=== PATIENT | female | born 1980 | race Caucasian/White ===

== ENCOUNTER → 2018-09-13 11:16 | Outpatient (CLI) | payer MEDICAID, SELFPAY ==
--- NOTE | 2018-09-13 11:22 | RAD_ITS ---
STUDY: X-RAY - LUMBAR SPINE REASON FOR EXAM: Female, 38 years old. Low back pain TECHNIQUE: 6 view(s) of the lumbar spine were obtained. COMPARISON: None FINDINGS: There is normal alignment and curvature of the lumbosacral spine with no acute fractures or dislocations. There are degenerative changes at L4-5 and L5-S1. The facet joints are normal.. RAD/L/S Spine Min 4 Views IMPRESSION: Intervertebral osteochondrosis at L4-5 and L5-S1. No fracture Electronically Signed: Demetrius Kerr MD at 3:13 EST Tel , Service support ,
--- NOTE | 2018-09-13 11:22 | RAD_ITS ---
STUDY: X-RAY - CERVICAL SPINE REASON FOR EXAM: Female, 38 years old. Cervical strain TECHNIQUE: 8 view(s) of the cervical spine were obtained. COMPARISON: None FINDINGS: Normal anterior atlantoaxial articulation. Normal odontoid process. Normal cervical lordosis. Normal vertebral bodies and endplates. Normal disc space heights. Normal visualized intervertebral neuroforamina. The soft tissue structures are unremarkable. RAD/Cerv Spine 4 or 5 Views IMPRESSION: Normal x-ray examination of the visualized cervical spine. No fracture. No disc disease. Electronically Signed: Demetrius Kerr MD at 4:29 EST Tel , Service support ,
== END ==
PROVIDERS: Referring Provider Chiropractor; Visit Provider Chiropractor
DX: S33.5XXA Sprain of ligaments of lumbar spine, initial encounter (principal); M54.16 Radiculopathy, lumbar region
CPT/HCPCS: 72050; 72110

== ENCOUNTER 2018-10-08 13:43 | Emergency (ER) | payer MEDICAID, SELFPAY ==
[2018-10-08 13:43] VITALS: BP 162/91; PULSE 105; RESP 18; TEMP 36.3; O2SAT 98; BMI 50.6
--- NOTE | 2018-10-08 14:12 | ED.VISSUMM ---
- ER Visit Summary Date of Service: 10/08/18 Chief Complaint: Tooth pain History of Present Illness: The patient is a 38 F who presents with tooth pain. Started 2 days ago. On the left lower side. It now radiates across the face. She tried ibuprofen which did not help. She denies any fever. She has no dentist currently. She is a smoker and has widespread tooth disease. She is getting all removed at some point Physical Examination: Vital signs are reviewed. HEENT exam reveals widespread dental decay. Multiple teeth are rotted out. She has tenderness at tooth #18. There is no abscess. No Scar's angina Test Results: [] Emergency Department Course and Treatment: Patient will be treated with NSAIDs and penicillin Treatment Plan: [] Disposition: Discharge Impression: Odontalgia This note was generated with [employer] dictation software. It may contain incorrect words, spelling, and punctuation that were not noted in review of the chart prior to signing ED Disposition - Plan for ED Patient: Chief Complaint: Dental Referrals: Care Physician,No Primary [Primary Care Provider] -
--- NOTE | 2018-10-08 14:13 | ED.DEP ---
ED Disposition - Plan for ED Patient: Disposition: Home or Assisted Living Chief Complaint: Dental Instructions: ED Tooth Pain Prescriptions: Naproxen [Naprosyn] 500 mg PO BID PRN #20 tab Penicillin V Potassium 500 mg PO 4X/DAY #40 tab Referrals: Care Physician,No Primary [Primary Care Provider] -
[2018-10-08] MEDS: Naproxen 500 MG Tablet PO (14:33)
[2018-10-08] MEDS: Penicillin Vk 250 MG Tablet 500 MG PO (14:33)
== END 2018-10-08 14:40 | disposition home or self-care (01) ==
LOC: ED 14:33
PROVIDERS: Emergency Provider Emergency Medicine
DX: K08.89 Other specified disorders of teeth and supporting structures (principal); K02.9 Dental caries, unspecified; F17.200 Nicotine dependence, unspecified, uncomplicated
CPT/HCPCS: 99282

== ENCOUNTER 2018-10-09 19:49 | Emergency (ER) | payer MEDICAID, SELFPAY ==
[2018-10-08 13:43] VITALS: BMI 50.6
[2018-10-09 19:49] VITALS: BP 166/87; PULSE 117; RESP 18; TEMP 36.6; O2SAT 98
[2018-10-09 19:50] VITALS: BP 166/87; PULSE 111; RESP 18; TEMP 36.6; O2SAT 98; BMI 51.0
[2018-10-09] MEDS: oxyCODONE 5 MG Tablet PO (21:04)
[2018-10-09 21:38] VITALS: BP 161/98; PULSE 102; RESP 20; TEMP 37.2
--- NOTE | 2018-10-09 22:12 | ED.DCSUM_ITS ---
- ER Visit Summary Date of Service: 10/09/18 Chief Complaint: Dental pain and facial swelling History of Present Illness: The patient is a 38 F presenting with dental pain and facial swelling. Patient was seen in the ED yesterday for similar complaints. She states she was started on penicillin. She states today she had increasing swelling in the left lower face. She denies fever. Denies other complaints. She has been taking penicillin as directed. She is also taking Naprosyn. Physical Examination: Vitals are stable. Patient is afebrile. Alert no acute distress. HEENT exam left lower molar tenderness with surrounding fluctuance. No sublingual edema Neck is supple. Lungs are clear and equal bilaterally. Heart is regular rate and rhythm. Skin is warm and dry. No focal neurologic deficit. Remainder of exam is unremarkable. Emergency Department Course and Treatment: Patient was given OxyIR x1. I&D was performed. Incised with 11 blade. Small amount of pus was drained. Irrigated. Patient tolerated this well. She is advised to continue her antibiotics. She is given a short course of oxycodone for home. Advised to follow-up with a dentist. Advised return to ED if worsening complaints. Disposition: Discharge home Impression: Dental abscess, I&D This note was generated with [employer] dictation software. It may contain incorrect words, spelling, and punctuation that were not noted in review of the chart prior to signing ED Disposition - Plan for ED Patient: Chief Complaint: Dental Referrals: Care Physician,No Primary [Primary Care Provider] -
--- NOTE | 2018-10-09 22:16 | ED.DEP ---
ED Disposition - Plan for ED Patient: Chief Complaint: Dental Instructions: Dental Abscess Prescriptions: Oxycodone HCl/Acetaminophen [Percocet 5/325] 1 tablet PO Q6H PRN PRN 3 Days #8 tablet PRN Reason: Pain Referrals: Care Physician,No Primary [Primary Care Provider] -
[2018-10-09 22:27] VITALS: BP 141/74; PULSE 82; RESP 20; O2SAT 97
--- NOTE | 2018-10-09 22:28 | ED.RN ---
THIS NURSE REVIEWED D/C INSTRUCTIONS WITH PT. PT VERBALIZED UNDERSTANDING OF INSTRUCTIONS. PT DENIES FURTHER NEEDS OR QUESTIONS AT THIS TIME.
== END 2018-10-09 22:28 | disposition home or self-care (01) ==
PROVIDERS: Emergency Provider Emergency Medicine
DX: K04.7 Periapical abscess without sinus (principal); Z72.0 Tobacco use
CPT/HCPCS: 41800; 99283

== ENCOUNTER 2019-02-03 06:41 | Inpatient (IN) | payer MEDICAID, SELFPAY ==
[2019-02-03] VITALS (19 sets, daily range): BP systolic 100–168; BP diastolic 66–88; PULSE 64–100; RESP 12–24; TEMP 36.3–37.2; O2SAT 96–100; BMI 52.6; BMI 52.3
--- NOTE | 2019-02-03 07:01 | EKG12_ITS ---
Test Reason : CP REPEAT Blood Pressure : / mmHG Vent. Rate : 078 BPM Atrial Rate : 078 BPM P-R Int : 158 ms QRS Dur : 086 ms QT Int : 378 ms P-R-T Axes : 038 024 019 degrees QTc Int : 430 ms Normal sinus rhythm with sinus arrhythmia Nonspecific ST Segment Abnormality Confirmed by BRANDON NAJERA, SUKUMAR ([id number]), fashion editor EVA ANGEL ([id number]) on 02/05/2019 11:06:49 AM Referred By: NINFA Confirmed By:SUKUMAR TAYLOR MD
--- NOTE | 2019-02-03 07:02 | EKG12_ITS ---
Test Reason : CP Blood Pressure : / mmHG Vent. Rate : 079 BPM Atrial Rate : 079 BPM P-R Int : 150 ms QRS Dur : 086 ms QT Int : 344 ms P-R-T Axes : 039 024 -11 degrees QTc Int : 394 ms Normal sinus rhythm with sinus arrhythmia Possible Left atrial enlargement ST & T wave abnormality, consider inferior lateral ischemia Abnormal ECG Confirmed by BRANDON NAJERA, SUKUMAR ([id number]), desk editor EVA ANGEL ([id number]) on 02/05/2019 11:08:34 AM Referred By: MARILUZ Confirmed By:SUKUMAR TAYLOR MD
--- NOTE | 2019-02-03 07:11 | RAD_ITS ---
STUDY: X-RAY CHEST REASON FOR EXAM: Female, 38 years old. Chest pain TECHNIQUE: 1 view COMPARISON: None. FINDINGS: The lungs are clear and expanded. There is no demonstrated pleural abnormality. Normal size heart. Normal mediastinum and jenae. Normal visualized pulmonary arteries. Normal visualized aortic arch and descending thoracic aorta. Normal visualized thoracic spine. Normal visualized ribs, clavicles, and shoulders. There is no demonstrated abnormality of the visualized soft tissue structures of the upper abdomen. RAD/Chest 1 View (Portable) IMPRESSION: Normal x-ray examination of the chest. No acute findings in the lungs Electronically Signed: Demetrius Kerr MD at 7:22 EDT Tel , Service support ,
[2019-02-03] MEDS: 0.9% Normal Saline 1,000 ML 150 ML IV (07:24)
[2019-02-03] MEDS: Aspirin 81 MG TAB.CHEW 324 MG PO (07:24)
[2019-02-03 07:26] LABS: Anion Gap 7 (5-15); BUN 13 mg/dL (7-18); BUN/Creat Ratio 23.2 RATIO (10-20); Calcium,Total 8.8 mg/dL (8.5-10.1); Chloride 108 mmol/L (98-107); Creatinine, Serum 0.56 mg/dL (0.55-1.02); EST Glomerular Filtration Rate 127 mL/min (>60); Est Glom Filt Rate - Afr Amer 154 mL/min (>60); Estimated Creatinine Clearance 115.31 ml/min; Glucose 119 mg/dL (74-106); Potassium 4.2 mmol/L (3.5-5.1); Sodium Level 139 mmol/L (136-145)
[2019-02-03 07:38] LABS: Absolute Lymphocyte Count 2.35 X10^3/ul (0.83-4.51); Absolute Neutrophil Count 4.9 X10^3/uL (2.0-7.7); Basophil# 0.02 X10^3/uL; Basophil% 0.3 % (0-1); Eosinophil# 0.01 X10^3/uL; Eosinophils% 0.1 % (0-5); Hemoglobin 14.1 g/dl (12.0-15.0); Lymphocyte # 2.35 X10^3/ul (4.0); Lymphocyte % 29.7 % (19-41); Mean Corp Hgb Conc 33.6 g/gl (32-36); Mean Corpuscular Volume 86.4 fL (81-99); Mean Platelet Vol. 9.4 fl (6.2-12.0); Monocyte# 0.65 X10^3/uL; Monocyte% 8.2 % (0-10); Neutrophil # 4.87 X10^3/uL (2.7-7.7); Neutrophil % 61.6 % (47-70); POSITIVE COUNT NO; POSITIVE DIFFERENTIAL NO; POSITIVE MORPHOLOGY NO; Platelet Count 297 K/mm3 (150-450); RBC Distribution Width SD 43.6 fl (35.1-43.9); Red Blood Count 4.86 M/mm3 (4.2-5.4); White Blood Count 7.9 K/mm3 (4.4-11.0)
--- NOTE | 2019-02-03 07:46 | ED.DCSUM_ITS ---
- ER Visit Summary Date of Service: 02/03/19 Chief Complaint: Chest pain History of Present Illness: The patient is a 38 F with a one-week history of chest pain. She describes a heaviness with radiation to both shoulders. 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 She also had worsening mary carmen rtness of breath that is currently improved. She denies that the pain has been worsened with activity. Past history significant for reflux disease, back pain, anxiety, depression. She previously had diabetes but currently is not requiring any medication. She is a smoker. Physical Examination: Blood pressure is 168/88, temperature 98.3, heart rate 94, respiratory rate 24, pulse ox 96% on room air. Patient sitting upright in bed. She appears uncomfortable but in no acute distress. Heart is regular rate and rhythm. Lung sounds are clear. Abdomen is soft and nontender. Lower extremity examination was no significant calf tenderness or edema. Test Results: Initial EKG is sinus at [address] depression. This is a new change when compared to June 2017. EKG is repeated after [address] depression in lateral depression is improved. Portable chest x-ray unremarkable. CBC normal. Chemistry studies unremarkable. Troponin is elevated at 0.113. Emergency Department Course and Treatment: Patient received aspirin along with sublingual nitroglycerin on arrival. She states her pain currently is a 1 and she describes it more as soreness. She states the intense chest pain that she previously had been experiencing is completely resolved. Spoke with Dr. Omalley to follow-up. Patient will be given Nitropaste, beta- tracy, 180 mg of Brilinta, and heparin drip. Patient will be admitted. Treatment Plan: [] Disposition: Admit Impression: 1. Acute coronary syndrome 2. Elevated troponin This note was generated with [employer] dictation software. It may contain incorrect words, spelling, and punctuation that were not noted in review of the chart prior to signing ED Disposition - Plan for ED Patient: Referrals: Missy Mcclain DO [Primary Care Provider] -
[2019-02-03 07:59] LABS: D-Dimer Quantitative (DVT/PE) 0.31 FEU/ug/m (0.27-0.49)
[2019-02-03] MEDS: TICAGRELOR 90 MG TABLET 180 MG PO (08:08)
[2019-02-03] MEDS: Metoprolol Tartrate 5 MG/5 ML Vial IV (08:13)
[2019-02-03] MEDS: HEPARIN/D5w 25,000 UNITS 25,000 UNITS/250 ML IV.SOLN. 18 UNITS IV ×2 (08:17→21:06)
[2019-02-03] MEDS: Nitroglycerin Oint 1 INCH PACKET TRANSDERM. ×3 (08:20→21:09)
[2019-02-03] MEDS: Heparin Injection (Vial) 5,000 UNIT/ML VIAL 11000 UNIT IV (08:44)
--- NOTE | 2019-02-03 09:04 | EKG12_ITS ---
Test Reason : CP Blood Pressure : / mmHG Vent. Rate : 067 BPM Atrial Rate : 067 BPM P-R Int : 152 ms QRS Dur : 086 ms QT Int : 404 ms P-R-T Axes : 034 042 057 degrees QTc Int : 426 ms Normal sinus rhythm with sinus arrhythmia Normal ECG Confirmed by BRANDON NAJERA, SUKUMAR ([id number]), managing editor PALMIRA HOSKINS ([id number]) on 02/06/2019 9:54:27 AM Referred By: MIGUELINA Confirmed By:SUKUMAR TAYLOR MD
[2019-02-03] MEDS: 0.9% Normal Saline 1,000 ML 75 ML IV ×2 (09:30→15:00)
--- NOTE | 2019-02-03 10:06 | PCM.HP.STD ---
Problem List (1) Chest pain Status: Acute (2) GERD (gastroesophageal reflux disease) Status: Chronic (3) Diet-controlled diabetes mellitus Status: Chronic History of Present Illness Date of Admission: 02/03/19 Chief Complaint: Chest pain. The patient is a 38 year old F with past medical history as mentioned above presented to the emergency room because of chest pain. Her symptoms started around 4 AM this morning, woke up from sleep because of chest pain, retrosternal chest pain, dull aching and sometimes sharp pain, constant pain, 10 out of 10 in severity, extends to the left side of her chest, associated with shortness of breath, palpitation and nausea and without aggravating or relieving factors. She stated that she has been having this chest pain for around 1 week, was intermittent, mild, not initiated by any activity or exertion and today morning, the pain was more intense and prolonged. At this time, her pain improved but still there. In the emergency department, her vital signs were stable. Her routine blood work was unremarkable. Her EKG revealed normal sinus rhythm, normal nontender, normal QRS, barely noticeable ST segment depression on the lateral chest leads. First troponin is 0.113, indeterminate. Chest x-ray showed no acute findings. D-dimer was normal. Patient was given loading dose of Brilinta and started on IV heparin drip according to cardiology recommendations. She is being admitted for chest pain/abnormal cardiac enzymes/probable unstable angina for evaluation and treatment. Past Medical History Past Medical History (Chronic Problems): Chronic Problems GERD (gastroesophageal reflux disease) (Chronic) Diet-controlled diabetes mellitus (Chronic) Allergies hydrocodone bitartrate [From Vicodin] Allergy (Mild, Verified 02/03/19 09:08) Hives acetaminophen [From Vicodin] Allergy (Verified 02/03/19 06:45) Unknown oxycodone [From Percocet] Adverse Reaction (Verified 02/03/19 09:08) Hives cold medicine Allergy (Uncoded 02/03/19 09:08) Hives Home Medications: Ambulatory Orders Medication Instructions Recorded Ibuprofen 600 mg PO TID PRN 01/05/17 Naproxen [Naprosyn] 500 mg PO BID PRN #20 tab 10/08/18 Cetirizine HCl 10 mg PO DAILY 02/03/19 Meclizine HCl 25 mg PO DAILY 02/03/19 Norgestimate-Ethinyl Estradiol 1 each PO DAILY 02/03/19 [Tri-Sprintec Tablet] Surgical History: - - section, back surgery, arthroscopic knee surgery. 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 Denies: Heaviness, Light Headedness, Paroxysmal Noc. Dyspnea, Syncope Respiratory: Reports: Shortness of Breath, Shortness of breath at rest. Denies: Cough, Hemoptysis, Pleuritic Pain, Sputum production, Wheezing Gastrointestinal: Reports: Nausea, Vomiting. Denies: Abdominal Pain, Constipation, Diarrhea Genitourinary: Denies: Dysuria, Frequency, Hematuria Musculoskeletal: Denies: Arm Pain, Back Pain, Foot Pain Skin: Denies: Dryness, Rash Neurological: Denies: Balance problems, Double vision, Change in Speech, Slurred speech, Headaches, Incoordination Psychiatric: Denies: Anxiety, Depression Endocrine: Denies: Change in Body Habitus, Polydipsia VTE Information - Inpt Only VTE Present on Admission: No VTE Mechan Device Prophylaxis: None VTE Pharm Prophylaxis ordered?: No Patient Problems: Active and Suspected Problems Chest pain (Acute) - Physical Exam General: Alert, Oriented x3, Cooperative, No apparent distress HEENT: Atraumatic, PERRLA, EOMI, Normocephalic Oral: Moist Mucosa, No Gingival or Mucosal Lesions/ Ulcerations Neck: Supple, No JVD, Negative Carotid Bruits, Trachea Midline, Thyroid Normal Size and Texture Lungs: Clear to auscultation, Normal air movement, No rhonchi, No wheeze, No rales Cardiovascular: Regular rate, Regular Rhythm, Normal S1, Normal S2, No murmurs, PMI Normal Abdomen: Bowel Sounds Present, Soft, Non Tender, Non-Distended, No Hepato-splenomegaly, Obese Extremities: No clubbing, No cyanosis, No edema Skin: No rashes, No breakdown Lymphatic: No Cervical, Supraclavicular, or Inguinal Adenopathy Neurological: Cranial nerves II-XII grossly intact, Motor Exam 5/5 strength throughout Psych/Mental Status: Normal Affect, Appropriate, Alert and oriented to time, place, person, mood and affect Vital Signs Temp Pulse Resp BP Pulse Ox 99 F 67 16 140/76 H 99 02/03/19 09:17 02/03/19 09:17 02/03/19 09:17 02/03/19 09:17 02/03/19 09:17 Oxygen Delivery Method Room Air Weight: 304 lb 14.389 oz Body Mass Index (BMI) 52.3 Laboratory Tests Past 24 Hrs 02/03/19 02/03/19 02/03/19 06:45 06:45 06:45 WBC 7.9 RBC 4.86 Hgb 14.1 Hct 42.0 MCV 86.4 MCH 29.0 MCHC 33.6 RDW 14.0 RDW Differential 43.6 Plt Count 297 MPV 9.4 Immature Gran % (Auto) 0.100 Neut % (Auto) 61.6 Lymph % (Auto) 29.7 Fannin % (Auto) 8.2 Eos % (Auto) 0.1 Baso % (Auto) 0.3 Absolute Neuts (auto) 4.9 Absolute Lymphs (auto) 2.35 Total Counted Not Reportable APTT D-Dimer Quant (PE/DVT) 0.31 Sodium 139 Potassium 4.2 Chloride 108 H Carbon Dioxide 24.0 Anion Gap 7 BUN 13 Creatinine 0.56 Estim Creat Clear Calc 115.31 Est GFR (MDRD) Af Amer 154 Est GFR (MDRD) Non-Af 127 BUN/Creatinine Ratio 23.2 H Glucose 119 H Hemoglobin A1c Calcium 8.8 Troponin I 0.113 H 02/03/19 02/03/19 02/03/19 08:06 09:29 09:29 WBC RBC Hgb Hct MCV MCH MCHC RDW RDW Differential Plt Count MPV Immature Gran % (Auto) Neut % (Auto) Lymph % (Auto) Fannin % (Auto) Eos % (Auto) Baso % (Auto) Absolute Neuts (auto) Absolute Lymphs (auto) Total Counted APTT 25.0 D-Dimer Quant (PE/DVT) Sodium Potassium Chloride Carbon Dioxide Anion Gap BUN Creatinine Estim Creat Clear Calc Est GFR (MDRD) Af Amer Est GFR (MDRD) Non-Af BUN/Creatinine Ratio Glucose Hemoglobin A1c Pending Calcium Troponin I Pending Clinical Impression(s) from Imaging Studies Chest X-Ray 02/03/19 07:11 IMPRESSION: Normal x-ray examination of the chest. No acute findings in the lungs Electronically Signed: Demetrius Kerr MD at 7:22 EDT Tel , Service support , Assessment/Plan All Active Problems Chest pain (Acute) This is a 38 years old female patient presented to the emergency room because of chest pain, found to have abnormal cardiac enzymes and subtle EKG changes and she is being admitted for evaluation and treatment. #1 chest pain/abnormal cardiac enzymes/probable unstable angina: EKG reviewed, revealed minimal ST segment depression on lateral chest leads, no acute ST elevation. Troponin is indeterminant at 0.113. Chest x-ray showed no acute findings. Vital signs are stable. She has no family history of premature CAD. She is a smoker for 18 years. Plan: Admit to PCU, cardiac monitoring, serial cardiac enzymes, repeat EKG tomorrow morning, TSH, hemoglobin A1c, lipid profile, continue IV heparin drip, IV fluids, IV morphine PRN, IV antiemetics, start baby aspirin, Lipitor and Coreg, cardiology consult. Patient may need to go for cardiac catheterization. #2 diet-controlled diabetes mellitus: According to the patient, her hemoglobin A1c was around 5 last year. Currently, she is not taking any diabetic medications, she was in the past. Blood sugar is 119 on admission. Plan: We will check hemoglobin C again, Accu-Cheks. #3 GERD: Start Protonix. #4 DVT prophylaxis: On IV heparin drip. This note was generated with [employer] dictation software. It may contain incorrect words, spelling, and punctuation that were not noted in checking the note before signing. Code Visit Inpatient E&M: 42317 Init Hosp L3
--- NOTE | 2019-02-03 10:11 | HP.PCM_ITS ---
Problem List (1) Chest pain Status: Acute (2) GERD (gastroesophageal reflux disease) Status: Chronic (3) Diet-controlled diabetes mellitus Status: Chronic History of Present Illness Date of Admission: 02/03/19 Chief Complaint: Chest pain. The patient is a 38 year old F with past medical history as mentioned above presented to the emergency room because of chest pain. Her symptoms started around 4 AM this morning, woke up from sleep because of chest pain, retrosternal chest pain, dull aching and sometimes sharp pain, constant pain, 10 out of 10 in severity, extends to the left side of her chest, associated with shortness of breath, palpitation and nausea and without aggravating or relieving factors. She stated that she has been having this chest pain for around 1 week, was intermittent, mild, not initiated by any activity or exertion and today morning, the pain was more intense and prolonged. At this time, her pain improved but still there. In the emergency department, her vital signs were stable. Her routine blood work was unremarkable. Her EKG revealed normal sinus rhythm, normal nontender, normal QRS, barely noticeable ST segment depression on the lateral chest leads. First troponin is 0.113, indeterminate. Chest x-ray showed no acute findings. D-dimer was normal. Patient was given loading dose of Brilinta and started on IV heparin drip according to cardiology recommendations. She is being admitted for chest pain/abnormal cardiac enzymes/probable unstable angina for evaluation and treatment. Past Medical History Past Medical History (Chronic Problems): Chronic Problems GERD (gastroesophageal reflux disease) (Chronic) Diet-controlled diabetes mellitus (Chronic) Allergies hydrocodone bitartrate [From Vicodin] Allergy (Mild, Verified 02/03/19 09:08) Hives acetaminophen [From Vicodin] Allergy (Verified 02/03/19 06:45) Unknown oxycodone [From Percocet] Adverse Reaction (Verified 02/03/19 09:08) Hives cold medicine Allergy (Uncoded 02/03/19 09:08) Hives Home Medications: Ambulatory Orders Medication Instructions Recorded Ibuprofen 600 mg PO TID PRN 01/05/17 Naproxen [Naprosyn] 500 mg PO BID PRN #20 tab 10/08/18 Cetirizine HCl 10 mg PO DAILY 02/03/19 Meclizine HCl 25 mg PO DAILY 02/03/19 Norgestimate-Ethinyl Estradiol 1 each PO DAILY 02/03/19 [Tri-Sprintec Tablet] Surgical History: - - section, back surgery, arthroscopic knee surgery. 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 Denies: Heaviness, Light Headedness, Paroxysmal Noc. Dyspnea, Syncope Respiratory: Reports: Shortness of Breath, Shortness of breath at rest. Denies: Cough, Hemoptysis, Pleuritic Pain, Sputum production, Wheezing Gastrointestinal: Reports: Nausea, Vomiting. Denies: Abdominal Pain, Constipation, Diarrhea Genitourinary: Denies: Dysuria, Frequency, Hematuria Musculoskeletal: Denies: Arm Pain, Back Pain, Foot Pain Skin: Denies: Dryness, Rash Neurological: Denies: Balance problems, Double vision, Change in Speech, Slurred speech, Headaches, Incoordination Psychiatric: Denies: Anxiety, Depression Endocrine: Denies: Change in Body Habitus, Polydipsia VTE Information - Inpt Only VTE Present on Admission: No VTE Mechan Device Prophylaxis: None VTE Pharm Prophylaxis ordered?: No Patient Problems: Active and Suspected Problems Chest pain (Acute) - Physical Exam General: Alert, Oriented x3, Cooperative, No apparent distress HEENT: Atraumatic, PERRLA, EOMI, Normocephalic Oral: Moist Mucosa, No Gingival or Mucosal Lesions/ Ulcerations Neck: Supple, No JVD, Negative Carotid Bruits, Trachea Midline, Thyroid Normal Size and Texture Lungs: Clear to auscultation, Normal air movement, No rhonchi, No wheeze, No rales Cardiovascular: Regular rate, Regular Rhythm, Normal S1, Normal S2, No murmurs, PMI Normal Abdomen: Bowel Sounds Present, Soft, Non Tender, Non-Distended, No Hepato- splenomegaly, Obese Extremities: No clubbing, No cyanosis, No edema Skin: No rashes, No breakdown Lymphatic: No Cervical, Supraclavicular, or Inguinal Adenopathy Neurological: Cranial nerves II-XII grossly intact, Motor Exam 5/5 strength throughout Psych/Mental Status: Normal Affect, Appropriate, Alert and oriented to time, place, person, mood and affect Vital Signs Temp Pulse Resp BP Pulse Ox 99 F 67 16 140/76 H 99 02/03/19 09:17 02/03/19 09:17 02/03/19 09:17 02/03/19 09:17 02/03/19 09:17 Oxygen Delivery Method Room Air Weight: 304 lb 14.389 oz Body Mass Index (BMI) 52.3 Laboratory Tests Past 24 Hrs 02/03/19 02/03/19 02/03/19 06:45 06:45 06:45 WBC 7.9 RBC 4.86 Hgb 14.1 Hct 42.0 MCV 86.4 MCH 29.0 MCHC 33.6 RDW 14.0 RDW Differential 43.6 Plt Count 297 MPV 9.4 Immature Gran % (Auto) 0.100 Neut % (Auto) 61.6 Lymph % (Auto) 29.7 [place] % (Auto) 8.2 Eos % (Auto) 0.1 Baso % (Auto) 0.3 Absolute Neuts (auto) 4.9 Absolute Lymphs (auto) 2.35 Total Counted Not Reportable APTT D-Dimer Quant (PE/DVT) 0.31 Sodium 139 Potassium 4.2 Chloride 108 H Carbon Dioxide 24.0 Anion Gap 7 BUN 13 Creatinine 0.56 Estim Creat Clear Calc 115.31 Est GFR (MDRD) Af Amer 154 Est GFR (MDRD) Non-Af 127 BUN/Creatinine Ratio 23.2 H Glucose 119 H Hemoglobin A1c Calcium 8.8 Troponin I 0.113 H 02/03/19 02/03/19 02/03/19 08:06 09:29 09:29 WBC RBC Hgb Hct MCV MCH MCHC RDW RDW Differential Plt Count MPV Immature Gran % (Auto) Neut % (Auto) Lymph % (Auto) [place] % (Auto) Eos % (Auto) Baso % (Auto) Absolute Neuts (auto) Absolute Lymphs (auto) Total Counted APTT 25.0 D-Dimer Quant (PE/DVT) Sodium Potassium Chloride Carbon Dioxide Anion Gap BUN Creatinine Estim Creat Clear Calc Est GFR (MDRD) Af Amer Est GFR (MDRD) Non-Af BUN/Creatinine Ratio Glucose Hemoglobin A1c Pending Calcium Troponin I Pending Clinical Impression(s) from Imaging Studies Chest X-Ray 02/03/19 07:11 IMPRESSION: Normal x-ray examination of the chest. No acute findings in the lungs Electronically Signed: Demetrius Kerr MD at 7:22 EDT Tel , Service support , Assessment/Plan All Active Problems Chest pain (Acute) This is a 38 years old female patient presented to the emergency room because of chest pain, found to have abnormal cardiac enzymes and subtle EKG changes and she is being admitted for evaluation and treatment. #1 chest pain/abnormal cardiac enzymes/probable unstable angina: EKG reviewed, revealed minimal ST segment depression on lateral chest leads, no acute ST elevation. Troponin is indeterminant at 0.113. Chest x-ray showed no acute findings. Vital signs are stable. She has no family history of premature CAD. She is a smoker for 18 years. Plan: Admit to PCU, cardiac monitoring, serial cardiac enzymes, repeat EKG tomorrow morning, TSH, hemoglobin A1c, lipid profile, continue IV heparin drip, IV fluids, IV morphine PRN, IV antiemetics, start baby aspirin, Lipitor and Coreg, cardiology consult. Patient may need to go for cardiac catheterization. #2 diet-controlled diabetes mellitus: According to the patient, her hemoglobin A1c was around 5 last year. Currently, she is not taking any diabetic medications, she was in the past. Blood sugar is 119 on admission. Plan: We will check hemoglobin C again, Accu-Cheks. #3 GERD: Start Protonix. #4 DVT prophylaxis: On IV heparin drip. This note was generated with [employer] dictation software. It may contain incorrect words, spelling, and punctuation that were not noted in checking the note before signing. Code Visit Inpatient E&M: 55359 Init Hosp L3
[2019-02-03 10:30] LABS: Hemoglobin A1c 5.7 % (4.2-6.3)
[2019-02-03 10:31] LABS: International Normalized Ratio 0.9
[2019-02-03] MEDS: Carvedilol 3.125 MG TABLET PO ×2 (11:01→21:08)
[2019-02-03 11:05] LABS: Bedside Glucose 123 mg/dL (70-110)
--- NOTE | 2019-02-03 12:50 | PCM.CONS.C ---
Problem List (1) NSTEMI (non-ST elevated myocardial infarction) Status: Acute (2) HLD (hyperlipidemia) Status: Chronic Qualifiers: Hyperlipidemia type: unspecified Qualified Code(s): E78.5 - Hyperlipidemia, unspecified (3) Diet-controlled diabetes mellitus Status: Chronic Reason for Consult Date of Consultation: 02/03/19 History of Present Illness: The patient is a 38 year old obese white female with a past medical history of hyperlipidemia-not treated and diabetes mellitus-off of medical management for greater than a year who presents for evaluation of symptoms concerning for unstable angina pectoris and findings compatible with an acute non-ST segment elevation TN. She states she has been having symptoms of chest discomfort where she feels at times her heart is coming out of her chest as well as being more short of breath and dyspneic. The symptoms have waxed and waned and occurred both at rest and with exertion. She has not had associated nausea, emesis, or diaphoresis. There is been no near syncope or syncope. She notes her symptoms woke her up from sleep this morning. She presented to the emergency department for further evaluation. She was noted to have an indeterminate troponin I level and an abnormal ECG suggesting changes compatible with sinus rhythm with ST and T wave changes compatible with myocardial ischemia in the inferolateral distributions. She was treated with aspirin and nitroglycerin sublingual therapy. She had improvement of her symptoms as well as improvement of her ECG. She was subsequently placed in the PCU for further evaluation and care. Her repeat troponin I level has elevated yet remains indeterminate. Her chest x-ray suggested no acute cardiopulmonary disease process based upon preliminary evaluation. She states she has had no cardiovascular history in the past. [] Past Medical History Allergies/Adverse Reactions: Allergies hydrocodone bitartrate [From Vicodin] Allergy (Mild, Verified 02/03/19 09:08) Hives acetaminophen [From Vicodin] Allergy (Verified 02/03/19 06:45) Unknown oxycodone [From Percocet] Adverse Reaction (Verified 02/03/19 09:08) Hives cold medicine Allergy (Uncoded 02/03/19 09:08) Hives Home Medications: Ambulatory Orders Medication Instructions Recorded Ibuprofen 600 mg PO TID PRN 01/05/17 Naproxen [Naprosyn] 500 mg PO BID PRN #20 tab 10/08/18 Cetirizine HCl 10 mg PO DAILY 02/03/19 Meclizine HCl 25 mg PO DAILY 02/03/19 Norgestimate-Ethinyl Estradiol 1 each PO DAILY 02/03/19 [Tri-Sprintec Tablet] Past Medical History (Chronic Problems): Chronic Problems HLD (hyperlipidemia) (Chronic) GERD (gastroesophageal reflux disease) (Chronic) Diet-controlled diabetes mellitus (Chronic) Surgical History: - - section, back surgery, arthroscopic knee surgery. 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 Denies: Orthopnea, PND, Peripheral Edema, Palpitations, Lightheadedness, Dizziness, Near Syncope, Syncope Respiratory: Reports: Shortness of Breath. Denies: Cough, Sputum Production, Hemoptysis Gastrointestinal: Denies: Hematemesis, Hematochezia, Melena Genitourinary: Denies: Dysuria, Hematuria Skin: Denies: Rash Subjectve: This is a 38-year-old obese white female who appears to be resting comfortably at the moment in no acute distress. Objective: Vital Signs Temp Pulse Resp BP Pulse Ox 99 F 67 16 140/76 H 99 02/03/19 09:17 02/03/19 09:17 02/03/19 09:17 02/03/19 09:17 02/03/19 09:17 Oxygen Delivery Method Room Air Weight: 304 lb 14.389 oz Body Mass Index (BMI) 52.3 Intake and Output for Last 24 Hours 02/01/19 02/02/19 02/03/19 23:59 23:59 23:59 Intake Total 240 / 240 Balance 240 / 240 General: Awake, Alert, Oriented x 3, Cooperative, No Acute Distress, Obese HEENT: Atraumatic, Normocephalic, PERRL, EOMI, Sclera Non Icteric Oral: Moist Mucosa Neck: Supple, Good ROM, No JVD Lungs: Clear to auscultation Cardiovascular: Regular Rhythm, Normal S1, Normal S2 Vascular: No Carotid Bruits Abdomen: Bowel Sounds Present, Soft, Non Tender Extremities: No edema Neurological: No Focal Motor or Sensory Deficit Psych/Mental Status: Appropriate 02/03/19 06:45: WBC 7.9, RBC 4.86, Hgb 14.1, Hct 42.0, MCV 86.4, MCH 29.0, MCHC 33.6, RDW 14.0, RDW Differential 43.6, Plt Count 297, MPV 9.4, Immature Gran % (Auto) 0.100, Neut % (Auto) 61.6, Lymph % (Auto) 29.7, [place] % (Auto) 8.2, Eos % (Auto) 0.1, Baso % (Auto) 0.3, Absolute Neuts (auto) 4.9, Total Counted Not Reportable 02/03/19 06:45: D-Dimer Quant (PE/DVT) 0.31 02/03/19 06:45: Sodium 139, Potassium 4.2, Chloride 108 H, Carbon Dioxide 24.0, Anion Gap 7, BUN 13, Creatinine 0.56, Est GFR (MDRD) Af Amer 154, Est GFR (MDRD) Non-Af 127, BUN/Creatinine Ratio 23.2 H, Glucose 119 H, Calcium 8.8, Troponin I 0.113 H 02/03/19 08:06: APTT 25.0 02/03/19 08:06: PT 12.0, INR 0.9 02/03/19 09:29: Hemoglobin A1c 5.7 02/03/19 09:29: Troponin I 0.336 H Rhythm: Sinus rhythm EKG: As noted above CXR: As noted above; please see official report Assessment/Plan 1. Acute non-ST segment elevation TN The patient presents with symptoms concerning for unstable angina pectoris and subsequent findings of an indeterminate troponin I level and an abnormal ECG all raising concerns of an acute non-ST segment elevation TN. At the present time she appears to be symptomatically improved. She will continue to be monitored. She will continue medical therapy. This is include aspirin, antiplatelets, anticoagulants, nitrates, beta-blockers, etc. She will be considered for further evaluation with both noninvasive and invasive studies. This will include a transthoracic echocardiogram to evaluate her left ventricular wall motion and systolic function. It would also include a diagnostic cardiac catheterization to evaluate her coronary anatomy. The procedures and risks were discussed with her with her present. She was agreeable to this approach. 2. Hyperlipidemia She states she has had a history of hyperlipidemia. She states her lipid levels have never been high enough for medical therapy. Her lipid levels will need to be evaluated. She will need to be treated appropriately. 3. Diabetes mellitus She states she has been off of her oral diabetic therapy for some time now. Future diabetes evaluation care will need to be under the direction of internal medicine. Comment: The above was discussed with the patient, her spouse, Dr. Bazan of the [facility] ED staff and Dr. Waldrop of the [facility] hospital staff. This note was generated with [employer] dictation software. It may contain incorrect words, spelling, and punctuation that were not noted in checking the note before signing.
--- NOTE | 2019-02-03 12:57 | ECHOCS_ITS ---
Reason For Study: CHEST PAIN Procedure This was a 2D Doppler, Color Flow transthoracic echocardiogram. The study was technically difficult. Contrast injection was performed. Exam performed portable in patient room. Left Ventricle Normal LV size. Left ventricular systolic function is normal. The estimated ejection fraction is 65 %. No evidence for diastolic dysfunction. No regional wall motion abnormalities noted. Right Ventricle Normal RV size. Normal systolic function. Atria The left atrium is mildly enlarged. Normal right atrium. No doppler evidence for ASD. Mitral Valve There is mild mitral annular calcification. Normal mitral valve. Trivial mitral valve insufficiency. Tricuspid Valve Normal tricuspid valve. Trivial tricuspid valve insufficiency. Right ventricular systolic pressure estimated to be 28 mmHg. Aortic Valve Trisinus/trileaflet aortic valve. Normal aortic valve. Pulmonic Valve The pulmonic valve is not well visualized. Great Vessels Normal sized aortic root. Pericardium/Pleural No pericardial effusion. Medication Diluted definity 4ml given slow IV push to enhance endocardial definition. MMode/2D Measurements & Calculations LVIDd: 5.4 cm IVSd: 0.90 cm Ao root diam: 3.1 cm LVIDs: 3.7 cm LVPWd: 0.94 cm RVDd: 3.9 cm FS: 30.8 % LAV(MOD-bp): 58.2 ml LVAd ap4: 37.6 cm2 SV(MOD-sp4): 107.6 ml LAV(MOD-bp) Indexed: 24.9 ml/m2 EDV(MOD-sp4): 144.8 ml LAV(MOD-sp2): 65.1 ml EDV(sp4-el): 150.2 ml LAV(MOD-sp4): 51.9 ml LVAs ap4: 16.9 cm2 ESV(MOD-sp4): 37.1 ml ESV(sp4-el): 37.9 ml EF(MOD-sp4): 74.4 % EF(sp4-el): 74.8 % SV(sp4-el): 112.3 ml LA A4 area: 19.6 cm2 LA dimension(2D): 3.9 cm RA A4 area: 16.8 cm2 Time Measurements MV dec time: 0.19 sec Doppler Measurements & Calculations MV E max ck: 100.2 cm/sec Lat Peak E' Ck: 12.3 cm/sec Med Peak E' Ck: 13.6 cm/sec MV A max ck: 79.9 cm/sec E/E' lat: 8.2 E/E' med: 7.4 MV E/A: 1.3 Ao V2 max: 175.1 cm/sec LV V1 max: 132.2 cm/sec PA V2 max: 83.6 cm/sec Ao max P.3 mmHg LV V1 max P.0 mmHg TR max ck: 251.3 cm/sec TR max P.3 mmHg Interpretation Summary The study was technically difficult. Contrast injection was performed. Left ventricular systolic function is normal. The estimated ejection fraction is 65 %. The left atrium is mildly enlarged. There is mild mitral annular calcification. Trivial mitral valve insufficiency. Trivial tricuspid valve insufficiency. Right ventricular systolic pressure estimated to be 28 mmHg. No evidence for diastolic dysfunction. Ordering Physician: Faizan Rush Referring Physician: JALYN GUERRERO Performed By: Nichol Talamantes RDCS
--- NOTE | 2019-02-03 12:57 | CON.PCM_ITS ---
Problem List (1) NSTEMI (non-ST elevated myocardial infarction) Status: Acute (2) HLD (hyperlipidemia) Status: Chronic Qualifiers: Hyperlipidemia type: unspecified Qualified Code(s): E78.5 - Hyperlipidemia, unspecified (3) Diet-controlled diabetes mellitus Status: Chronic Reason for Consult Date of Consultation: 02/03/19 History of Present Illness: The patient is a 38 year old obese white female with a past medical history of hyperlipidemia-not treated and diabetes mellitus-off of medical management for greater than a year who presents for evaluation of symptoms concerning for unstable angina pectoris and findings compatible with an acute non-ST segment elevation ND. She states she has been having symptoms of chest discomfort where she feels at times her heart is coming out of her chest as well as being more short of breath and dyspneic. The symptoms have waxed and waned and occurred both at rest and with exertion. She has not had associated nausea, emesis, or diaphoresis. There is been no near syncope or syncope. She notes her symptoms woke her up from sleep this morning. She presented to the emergency department for further evaluation. She was noted to have an indeterminate troponin I level and an abnormal ECG suggesting changes compatible with sinus rhythm with ST and T wave changes compatible with myocardial ischemia in the inferolateral distributions. She was treated with aspirin and nitroglycerin sublingual therapy. She had improvement of her symptoms as well as improvement of her ECG. She was subsequently placed in the PCU for further evaluation and care. Her repeat troponin I level has elevated yet remains indeterminate. Her chest x-ray suggested no acute cardiopulmonary disease process based upon preliminary evaluation. She states she has had no cardiovascular history in the past. [] Past Medical History Allergies/Adverse Reactions: Allergies hydrocodone bitartrate [From Vicodin] Allergy (Mild, Verified 02/03/19 09:08) Hives acetaminophen [From Vicodin] Allergy (Verified 02/03/19 06:45) Unknown oxycodone [From Percocet] Adverse Reaction (Verified 02/03/19 09:08) Hives cold medicine Allergy (Uncoded 02/03/19 09:08) Hives Home Medications: Ambulatory Orders Medication Instructions Recorded Ibuprofen 600 mg PO TID PRN 01/05/17 Naproxen [Naprosyn] 500 mg PO BID PRN #20 tab 10/08/18 Cetirizine HCl 10 mg PO DAILY 02/03/19 Meclizine HCl 25 mg PO DAILY 02/03/19 Norgestimate-Ethinyl Estradiol 1 each PO DAILY 02/03/19 [Tri-Sprintec Tablet] Past Medical History (Chronic Problems): Chronic Problems HLD (hyperlipidemia) (Chronic) GERD (gastroesophageal reflux disease) (Chronic) Diet-controlled diabetes mellitus (Chronic) Surgical History: - - section, back surgery, arthroscopic knee surgery. Psychiatric History: No pertinent psych hx [employer] History: No pertinent [employer] history - *Family History Maternal History Items: Diabetes, Hypertension Paternal History Items: No pertinent history Lives: Spouse/ Significant Other Smoking Status: Current every day smoker Tobacco Use: Cigarettes Alcohol: None Drugs: None Review of Systems - Review of Systems General: Denies: Fever, Night Sweats, Fatigue Cardiovascular: Reports: Chest Discomfort, Chest Discomfort at Rest, Chest Discomfort with Exertion, Shortness of Breath, Shortness of Breath at Rest, Shortness of Breath with Exertion. Denies: Orthopnea, PND, Peripheral Edema, Palpitations, Lightheadedness, Dizziness, Near Syncope, Syncope Respiratory: Reports: Shortness of Breath. Denies: Cough, Sputum Production, Hemoptysis Gastrointestinal: Denies: Hematemesis, Hematochezia, Melena Genitourinary: Denies: Dysuria, Hematuria Skin: Denies: Rash Subjectve: This is a 38-year-old obese white female who appears to be resting comfortably at the moment in no acute distress. Objective: Vital Signs Temp Pulse Resp BP Pulse Ox 99 F 67 16 140/76 H 99 02/03/19 09:17 02/03/19 09:17 02/03/19 09:17 02/03/19 09:17 02/03/19 09:17 Oxygen Delivery Method Room Air Weight: 304 lb 14.389 oz Body Mass Index (BMI) 52.3 Intake and Output for Last 24 Hours 02/01/19 02/02/19 02/03/19 23:59 23:59 23:59 Intake Total 240 / 240 Balance 240 / 240 General: Awake, Alert, Oriented x 3, Cooperative, No Acute Distress, Obese HEENT: Atraumatic, Normocephalic, PERRL, EOMI, Sclera Non Icteric Oral: Moist Mucosa Neck: Supple, Good ROM, No JVD Lungs: Clear to auscultation Cardiovascular: Regular Rhythm, Normal S1, Normal S2 Vascular: No Carotid Bruits Abdomen: Bowel Sounds Present, Soft, Non Tender Extremities: No edema Neurological: No Focal Motor or Sensory Deficit Psych/Mental Status: Appropriate 02/03/19 06:45: WBC 7.9, RBC 4.86, Hgb 14.1, Hct 42.0, MCV 86.4, MCH 29.0, MCHC 33.6, RDW 14.0, RDW Differential 43.6, Plt Count 297, MPV 9.4, Immature Gran % (Auto) 0.100, Neut % (Auto) 61.6, Lymph % (Auto) 29.7, [place] % (Auto) 8.2, Eos % (Auto) 0.1, Baso % (Auto) 0.3, Absolute Neuts (auto) 4.9, Total Counted Not Reportable 02/03/19 06:45: D-Dimer Quant (PE/DVT) 0.31 02/03/19 06:45: Sodium 139, Potassium 4.2, Chloride 108 H, Carbon Dioxide 24.0, Anion Gap 7, BUN 13, Creatinine 0.56, Est GFR (MDRD) Af Amer 154, Est GFR (MDRD) Non-Af 127, BUN/Creatinine Ratio 23.2 H, Glucose 119 H, Calcium 8.8, Troponin I 0.113 H 02/03/19 08:06: APTT 25.0 02/03/19 08:06: PT 12.0, INR 0.9 02/03/19 09:29: Hemoglobin A1c 5.7 02/03/19 09:29: Troponin I 0.336 H Rhythm: Sinus rhythm EKG: As noted above CXR: As noted above; please see official report Assessment/Plan 1. Acute non-ST segment elevation ND The patient presents with symptoms concerning for unstable angina pectoris and subsequent findings of an indeterminate troponin I level and an abnormal ECG all raising concerns of an acute non-ST segment elevation ND. At the present time she appears to be symptomatically improved. She will continue to be monitored. She will continue medical therapy. This is include aspirin, antiplatelets, anticoagulants, nitrates, beta-blockers, etc. She will be considered for further evaluation with both noninvasive and invasive studies. This will include a transthoracic echocardiogram to evaluate her left ventricular wall motion and systolic function. It would also include a diagnostic cardiac catheterization to evaluate her coronary anatomy. The procedures and risks were discussed with her with her present. She was agreeable to this approach. 2. Hyperlipidemia She states she has had a history of hyperlipidemia. She states her lipid levels have never been high enough for medical therapy. Her lipid levels will need to be evaluated. She will need to be treated appropriately. 3. Diabetes mellitus She states she has been off of her oral diabetic therapy for some time now. Future diabetes evaluation care will need to be under the direction of internal medicine. Comment: The above was discussed with the patient, her spouse, Dr. Bazan of the [facility] ED staff and Dr. Waldrop of the [facility] hospital staff. This note was generated with [employer] dictation software. It may contain incorrect words, spelling, and punctuation that were not noted in checking the note before signing.
[2019-02-03 15:30] LABS: Partial Thromboplast Time 40.8 Seconds (24.1-36.2)
[2019-02-03] MEDS: Heparin Injection (Vial) 5,000 UNIT/ML VIAL IV ×2 (15:37→22:33)
[2019-02-03 16:26] LABS: Bedside Glucose 109 mg/dL (70-110)
[2019-02-03] MEDS: Atorvastatin Calcium 40 MG Tablet PO (21:08)
[2019-02-03] MEDS: TICAGRELOR 90 MG TABLET PO (21:09)
[2019-02-03 21:55] LABS: Bedside Glucose 127 mg/dL (70-110)
[2019-02-03 22:10] LABS: Partial Thromboplast Time 33.8 Seconds (24.1-36.2)
[2019-02-04] VITALS (20 sets, daily range): BP systolic 117–154; BP diastolic 62–85; PULSE 60–83; RESP 16–18; TEMP 36.2–36.6; O2SAT 98–100
[2019-02-04] MEDS: 0.9% Normal Saline 1,000 ML 75 ML IV (03:33)
[2019-02-04] MEDS: Carvedilol 3.125 MG TABLET PO (05:46)
[2019-02-04] MEDS: Aspirin E.C. 81 MG Tablet PO (05:46)
[2019-02-04] MEDS: TICAGRELOR 90 MG TABLET PO (05:46)
[2019-02-04] MEDS: Nitroglycerin Oint 1 INCH PACKET TRANSDERM. (05:46)
[2019-02-04 05:55] LABS: Partial Thromboplast Time 31.3 Seconds (24.1-36.2)
--- NOTE | 2019-02-04 05:55 | EKG12_ITS ---
Test Reason : AM EKG Blood Pressure : / mmHG Vent. Rate : 067 BPM Atrial Rate : 067 BPM P-R Int : 162 ms QRS Dur : 090 ms QT Int : 432 ms P-R-T Axes : 029 052 096 degrees QTc Int : 456 ms Normal sinus rhythm Normal ECG Confirmed by BRANDON NAJERA, SUKUMAR ([id number]), assignment desk editor EVA ANGEL ([id number]) on 02/05/2019 11:28:35 AM Referred By: MIGUELINA Confirmed By:SUKUMAR TAYLOR MD
[2019-02-04 06:19] LABS: Anion Gap 8 (5-15); BUN 10 mg/dL (7-18); BUN/Creat Ratio 19.6 RATIO (10-20); Calcium,Total 8.1 mg/dL (8.5-10.1); Chloride 112 mmol/L (98-107); Cholesterol 173 mg/dL (200); Creatinine, Serum 0.51 mg/dL (0.55-1.02); EST Glomerular Filtration Rate 142 mL/min (>60); Est Glom Filt Rate - Afr Amer 171 mL/min (>60); Estimated Creatinine Clearance 126.62 ml/min; Glucose 99 mg/dL (74-106); High Density Lipoprotein 36 mg/dL; Potassium 4.5 mmol/L (3.5-5.1); Sodium Level 138 mmol/L (136-145); Thyroid Stim Hormone (TSH) 1.86 uIU/mL (0.358-3.74); Triglycerides 196 mg/dL; Very Low Density Lipoprotein 39 mg/dL (5-40)
[2019-02-04 06:33] LABS: Absolute Lymphocyte Count 2.13 X10^3/ul (0.83-4.51); Absolute Neutrophil Count 4.4 X10^3/uL (2.0-7.7); Basophil# 0.02 X10^3/uL; Basophil% 0.3 % (0-1); Eosinophil# 0.01 X10^3/uL; Eosinophils% 0.1 % (0-5); Hematocrit 35.6 % (37-47); Hemoglobin 11.8 g/dl (12.0-15.0); Lymphocyte # 2.13 X10^3/ul (4.0); Lymphocyte % 30.3 % (19-41); Mean Corp Hgb Conc 33.1 g/gl (32-36); Mean Corpuscular Hgb 28.9 pg (27.0-32.0); Mean Corpuscular Volume 87.3 fL (81-99); Mean Platelet Vol. 9.6 fl (6.2-12.0); Monocyte# 0.46 X10^3/uL; Monocyte% 6.5 % (0-10); Neutrophil # 4.41 X10^3/uL (2.7-7.7); Neutrophil % 62.7 % (47-70); Platelet Count 282 K/mm3 (150-450); RBC Distribution Width CV 14.1 % (11.6-14.6); RBC Distribution Width SD 45.3 fl (35.1-43.9); Red Blood Count 4.08 M/mm3 (4.2-5.4)
[2019-02-04 06:37] LABS: POSITIVE COUNT NO; POSITIVE DIFFERENTIAL NO; POSITIVE MORPHOLOGY NO
--- NOTE | 2019-02-04 06:50 | NURSING ---
called report to ear mold laboratory technician
[2019-02-04 06:51] LABS: Bedside Glucose 117 mg/dL (70-110)
[2019-02-04 07:32] LABS: Internal QC Validated? YES +Cl - CLEAR BKGD
[2019-02-04 07:37] LABS: Pregnancy, Serum, hCG Quali. NEGATIVE Negative (0-9 Nonpreg)
--- NOTE | 2019-02-04 08:34 | PCM.PN.CARD ---
Subjectve: The patient has continued without recurrent chest discomfort. Her cardiac enzymes have been followed and her troponin I levels have trended down. Her ECG has been followed and appears to have returned to baseline. The patient is now also status post diagnostic coronary angiography via the right radial artery approach. In brief, her coronary angiography demonstrated patent epicardial vessels with a small OM side branch vessel with ostial/proximal narrowing appearing to be a culprit and matching her ECG changes/distribution. Her coronary angiography was reviewed with Dr. Hooper of the interventional cardiology team. At the present time it was recommended to continue medical management and not proceed with an attempt at catheter-based PCI of the small side branch vessel. Objective: Vital Signs Temp Pulse Resp BP Pulse Ox 97.6 F L 76 16 127/73 H 99 02/04/19 05:44 02/04/19 05:46 02/04/19 05:44 02/04/19 05:46 02/04/19 05:44 Oxygen Delivery Method Room Air Weight: 304 lb 14.389 oz Body Mass Index (BMI) 52.3 Intake and Output for Last 24 Hours 02/02/19 02/03/19 02/04/19 23:59 23:59 23:59 Intake Total 2330 / 2330 391.5 / 391.5 Balance 2330 / 2330 391.5 / 391.5 General: Awake, Alert, Oriented x 3, Cooperative, No Acute Distress, Obese HEENT: Atraumatic, Normocephalic, PERRL, EOMI, Sclera Non Icteric Oral: Moist Mucosa Neck: Supple, Good ROM, No JVD Lungs: Clear to auscultation Cardiovascular: Regular Rhythm, Normal S1, Normal S2 Vascular: No Carotid Bruits Abdomen: Bowel Sounds Present, Soft, Non Tender, Obese Extremities: No Cyanosis, No Clubbing, No edema Neurological: No Focal Motor or Sensory Deficit Psych/Mental Status: Appropriate 02/03/19 08:06: APTT 25.0 02/03/19 08:06: PT 12.0, INR 0.9 02/03/19 09:29: Hemoglobin A1c 5.7 02/03/19 09:29: Troponin I 0.336 H 02/03/19 13:11: Troponin I 2.860 H* 02/03/19 14:38: APTT 40.8 H 02/03/19 16:05: Troponin I 4.910 H* 02/03/19 18:00: Troponin I 6.210 H* 02/03/19 21:48: Troponin I 7.540 H* 02/03/19 21:48: APTT 33.8 02/04/19 00:48: Troponin I 8.780 H* 02/04/19 04:36: Sodium 138, Potassium 4.5, Chloride 112 H, Carbon Dioxide 18.0 L, Anion Gap 8, BUN 10, Creatinine 0.51 L, Est GFR (MDRD) Af Amer 171, Est GFR (MDRD) Non-Af 142, BUN/Creatinine Ratio 19.6, Glucose 99, Calcium 8.1 L, Triglycerides 196, Cholesterol 173, LDL Cholesterol 98, VLDL Cholesterol 39, HDL Cholesterol 36 L 02/04/19 04:36: WBC 7.0, RBC 4.08 L, Hgb 11.8 L, Hct 35.6 L, MCV 87.3, MCH 28.9, MCHC 33.1, RDW 14.1, RDW Differential 45.3 H, Plt Count 282, MPV 9.6, Immature Gran % (Auto) 0.100, Neut % (Auto) 62.7, Lymph % (Auto) 30.3, [place] % (Auto) 6.5, Eos % (Auto) 0.1, Baso % (Auto) 0.3, Absolute Neuts (auto) 4.4, Total Counted Not Reportable 02/04/19 04:36: PT 13.0, INR 1.0, APTT 31.3 02/04/19 04:36: Troponin I 4.460 H* Rhythm: Sinus rhythm EKG: Sinus rhythm; no acute ECG changes ECHO: Pending Cardiac Cath: Please see official report Medical Necessity - Tobacco Use Smoking Status: Current every day smoker Tobacco Use: Cigarettes Assessment/Plan 1. Acute non-ST segment elevation CT The patient presents with symptoms concerning for unstable angina pectoris and subsequent findings of an indeterminate troponin I level and an abnormal ECG all raising concerns of an acute non-ST segment elevation CT. Troponin I levels have decreased. Her ECG has returned to baseline. At the present time she appears to be symptomatically improved. He is now status post coronary angiography via the right radial artery approach. As noted above her epicardial coronary vessels were patent with no angiographically significant appearing disease appreciated. And LCx/OM small side branch vessel demonstrated ostial/proximal narrowing which appeared to be a culprit lesion and matching the distribution of her ECG changes. As noted above this was reviewed by Dr. Hooper of the interventional team who did not recommend further catheter-based revascularization therapy based upon this vessel being a small side branch vessel. The recommendation was for continued medical management. Thus the patient's medications will be altered. She will continue aspirin therapy. She will be placed on antiplatelet therapy with clopidogrel/Plavix as part of her medical management. She will continue nitrate therapy and beta-tracy therapy. She will continue lipid-lowering agents. She is also going to have a transthoracic echocardiogram performed to evaluate her left ventricular wall motion and systolic function. 2. Hyperlipidemia Based upon her clinical event and objective findings she will continue lipid-lowering therapy with statins. 3. Diabetes mellitus She states she has been off of her oral diabetic therapy for some time now. Future diabetes evaluation care will need to be under the direction of internal medicine. Comment: The above was discussed and reviewed with the patient's family members present. This note was generated with [employer] dictation software. It may contain incorrect words, spelling, and punctuation that were not noted in checking the note before signing.
--- NOTE | 2019-02-04 08:38 | PN.CARD_ITS ---
Subjectve: The patient has continued without recurrent chest discomfort. Her cardiac enzymes have been followed and her troponin I levels have trended down. Her ECG has been followed and appears to have returned to baseline. The patient is now also status post diagnostic coronary angiography via the right radial artery approach. In brief, her coronary angiography demonstrated patent epicardial vessels with a small OM side branch vessel with ostial/proximal narrowing appearing to be a culprit and matching her ECG changes/distribution. Her coronary angiography was reviewed with Dr. Hooper of the interventional cardiology team. At the present time it was recommended to continue medical management and not proceed with an attempt at catheter-based PCI of the small side branch vessel. Objective: Vital Signs Temp Pulse Resp BP Pulse Ox 97.6 F L 76 16 127/73 H 99 02/04/19 05:44 02/04/19 05:46 02/04/19 05:44 02/04/19 05:46 02/04/19 05:44 Oxygen Delivery Method Room Air Weight: 304 lb 14.389 oz Body Mass Index (BMI) 52.3 Intake and Output for Last 24 Hours 02/02/19 02/03/19 02/04/19 23:59 23:59 23:59 Intake Total 2330 / 2330 391.5 / 391.5 Balance 2330 / 2330 391.5 / 391.5 General: Awake, Alert, Oriented x 3, Cooperative, No Acute Distress, Obese HEENT: Atraumatic, Normocephalic, PERRL, EOMI, Sclera Non Icteric Oral: Moist Mucosa Neck: Supple, Good ROM, No JVD Lungs: Clear to auscultation Cardiovascular: Regular Rhythm, Normal S1, Normal S2 Vascular: No Carotid Bruits Abdomen: Bowel Sounds Present, Soft, Non Tender, Obese Extremities: No Cyanosis, No Clubbing, No edema Neurological: No Focal Motor or Sensory Deficit Psych/Mental Status: Appropriate 02/03/19 08:06: APTT 25.0 02/03/19 08:06: PT 12.0, INR 0.9 02/03/19 09:29: Hemoglobin A1c 5.7 02/03/19 09:29: Troponin I 0.336 H 02/03/19 13:11: Troponin I 2.860 H* 02/03/19 14:38: APTT 40.8 H 02/03/19 16:05: Troponin I 4.910 H* 02/03/19 18:00: Troponin I 6.210 H* 02/03/19 21:48: Troponin I 7.540 H* 02/03/19 21:48: APTT 33.8 02/04/19 00:48: Troponin I 8.780 H* 02/04/19 04:36: Sodium 138, Potassium 4.5, Chloride 112 H, Carbon Dioxide 18.0 L , Anion Gap 8, BUN 10, Creatinine 0.51 L, Est GFR (MDRD) Af Amer 171, Est GFR (MDRD) Non-Af 142, BUN/Creatinine Ratio 19.6, Glucose 99, Calcium 8.1 L, Triglycerides 196, Cholesterol 173, LDL Cholesterol 98, VLDL Cholesterol 39, HDL Cholesterol 36 L 02/04/19 04:36: WBC 7.0, RBC 4.08 L, Hgb 11.8 L, Hct 35.6 L, MCV 87.3, MCH 28.9, MCHC 33.1, RDW 14.1, RDW Differential 45.3 H, Plt Count 282, MPV 9.6, Immature Gran % (Auto) 0.100, Neut % (Auto) 62.7, Lymph % (Auto) 30.3, [place] % (Auto) 6.5, Eos % (Auto) 0.1, Baso % (Auto) 0.3, Absolute Neuts (auto) 4.4, Total Counted Not Reportable 02/04/19 04:36: PT 13.0, INR 1.0, APTT 31.3 02/04/19 04:36: Troponin I 4.460 H* Rhythm: Sinus rhythm EKG: Sinus rhythm; no acute ECG changes ECHO: Pending Cardiac Cath: Please see official report Medical Necessity - Tobacco Use Smoking Status: Current every day smoker Tobacco Use: Cigarettes Assessment/Plan 1. Acute non-ST segment elevation PA The patient presents with symptoms concerning for unstable angina pectoris and subsequent findings of an indeterminate troponin I level and an abnormal ECG all raising concerns of an acute non-ST segment elevation PA. Troponin I levels have decreased. Her ECG has returned to baseline. At the present time she appears to be symptomatically improved. He is now status post coronary angiography via the right radial artery approach. As noted above her epicardial coronary vessels were patent with no angiographically significant appearing disease appreciated. And LCx/OM small side branch vessel demonstrated ostial/proximal narrowing which appeared to be a culprit lesion and matching the distribution of her ECG changes. As noted above this was reviewed by Dr. Hooper of the interventional team who did not recommend further catheter-based revascularization therapy based upon this vessel being a small side branch vessel. The recommendation was for continued medical management. Thus the patient's medications will be altered. She will continue aspirin therapy. She will be placed on antiplatelet therapy with clopidogrel/Plavix as part of her medical management. She will continue nitrate therapy and beta- tracy therapy. She will continue lipid-lowering agents. She is also going to have a transthoracic echocardiogram performed to evaluate her left ventricular wall motion and systolic function. 2. Hyperlipidemia Based upon her clinical event and objective findings she will continue lipid- lowering therapy with statins. 3. Diabetes mellitus She states she has been off of her oral diabetic therapy for some time now. Future diabetes evaluation care will need to be under the direction of internal medicine. Comment: The above was discussed and reviewed with the patient's family members present. This note was generated with [employer] dictation software. It may contain incorrect words, spelling, and punctuation that were not noted in checking the note before signing.
--- NOTE | 2019-02-04 08:53 | CL.D_ITS ---
Patient Name: KATH LÓPEZ Study Date: 02/04/2019 Performing: Faizan Rush MD Ht: 64 inches 163 cm : 1980 Wt: 304.6 lbs 138 kg Age: 38 Gender: female BSA: 2.34 PROCEDURE(S) PERFORMED [id number] CLINICAL PROFILE AND INDICATIONS Indications: New Onset Angina <= 2 months, Suspected CAD Heart Failure: None Stress/Imaging Stress/Image Study Performed: No Angina Classification Anginal Classification w/in 2 Weeks: CCS IV CAD Presentations: Non-STEMI. Unstable angina. CONCLUSIONS [place] Multivessel CAD RECOMMENDATIONS Risk factor modification Medical therapy DESCRIPTION OF PROCEDURE The patient arrived to the procedure lab. The risks and benefits of the procedure as well as a full d escription of our services here and current unavailability of surgical backup were fully explained to the patient and/or their significant other prior to the catheterization. The Timeout was completed, verifying the correct patient and procedure. The patient's procedural site was prepped and draped in the usual fashion. Local anesthetic was given subcutaneously to right radial region with Lidocaine 2% . Using a modified Seldinger technique, arterial access was obtained via the right radial artery, a 6 Fr sheath was inserted. Right Coronary Artery selective angiography was then performed in multiple v iews using a 5 Fr. 4.0 [place] catheter. Left Coronary Artery selective angiography was performed in mu ltiple views using a 5 Fr. 4.0 [place] catheter.The arterial sheath was pulled and a TR Band was applie d for hemostasis w/ 13ml air CORONARY ANGIOGRAPHY DOMINANCE: Right Dominant LEFT HEART ASSESSMENT Left Ventricular Ejection Fraction: Not assessed LEFT MAIN: proximal smooth 10 % Stenosis LEFT ANTERIOR DECENDING ARTERY: PROX LAD: Mild luminal irregularities MID LAD: Eccentric: 25 % Stenosis CIRCUMFLEX ARTERY: OM 1: Distal - small side branch vessel with ostial / proximal 95 % Stenosis RIGHT CORONARY ARTERY: Mild luminal irregularities COMPLICATIONS No Complications PROCEDURE MEDICATIONS Versed 1 mg IV Fentanyl 50 mcg IV Fentanyl 50 mcg IV Versed 1 mg IV Fentanyl 50 mcg IV Versed 1 mg IV Fentanyl 50 mcg IV Oxygen: 2 L/min via nasal cannula Heparin diluted in 23cc Heparinized saline. Patient given 10cc IA of this solution. 02/04/2019 07:50: 46 Verapamil 2.5mg, Ntg 100mcgs, 2000 units of Heparin diluted in 23cc Heparinized saline. Patient give n 10cc IA of this solution. 02/04/2019 07:50:46 SUMMARY OF HEMODYNAMIC DATA Time AIR REST ECG 07:17:45 AO 118/67 (91) SA 07:52:13 Signed By Faizan Rush MD On 02/04/2019 08:53:04 Faizan Rush MD
--- NOTE | 2019-02-04 09:28 | CASEMGMT ---
According to the [facility] Community plan website, the following are in-network tertiary facilities: [facility], [place], [facility], [place], [facility], [facility], [facility], [facility], [facility], and . Lavon SALDIVAR CM
[2019-02-04] MEDS: Isosorbide Mononitrate 30 MG Tablet PO (10:37)
[2019-02-04] MEDS: Pantoprazole Sodium 40 MG Tablet PO (10:37)
[2019-02-04] MEDS: Clopidogrel Bisulfate 300 MG Tablet PO (10:38)
--- NOTE | 2019-02-04 11:11 | PCM.PN.HOSP ---
Patient Problems: Active and Suspected Problems NSTEMI (non-ST elevated myocardial infarction) (Acute) Chest pain (Acute) Subjective: Patient was seen and examined. Had a cardiac cath today that showed narrowing in the obtuse marginal side branch vessel with ostial/proximal narrowing. Complains of pain in the right wrist. Denies any more chest pain no dizziness or shortness of breath or palpitations. Objective: General: Awake, Alert, Oriented x 3, Cooperative, No Acute Distress, Obese HEENT: Atraumatic, Normocephalic, PERRL, EOMI, Sclera Non Icteric Oral: Moist Mucosa Neck: Supple, Good ROM, No JVD Lungs: Clear to auscultation Cardiovascular: Regular Rhythm, Normal S1, Normal S2 Vascular: No Carotid Bruits Abdomen: Bowel Sounds Present, Soft, Non Tender, Obese Extremities: Tenderness about her right wrist cardiac cath site. Able to wiggle her fingers, no change in color, no differential warmth. Neurological: No Focal Motor or Sensory Deficit Psych/Mental Status: Appropriate Vitals/I&O's: Vital Signs Temp Pulse Resp BP Pulse Ox 98 F 71 18 154/80 H 99 02/04/19 09:00 02/04/19 10:30 02/04/19 10:30 02/04/19 10:30 02/04/19 10:30 Oxygen Delivery Method Room Air Weight: 138.3 kg Body Mass Index (BMI) 52.3 Intake and Output for Last 24 Hours 02/02/19 02/03/19 02/04/19 23:59 23:59 23:59 Intake Total 2330 / 2330 391.5 / 391.5 Balance 2330 / 2330 391.5 / 391.5 Laboratory Results 02/03/19 13:11: Troponin I 2.860 H* 02/03/19 14:38: APTT 40.8 H 02/03/19 16:05: Troponin I 4.910 H* 02/03/19 16:14: POC Glucose 109 02/03/19 18:00: Troponin I 6.210 H* 02/03/19 21:04: POC Glucose 127 H 02/03/19 21:48: Troponin I 7.540 H* 02/03/19 21:48: APTT 33.8 02/04/19 00:48: Troponin I 8.780 H* 02/04/19 04:36: Sodium 138, Potassium 4.5, Chloride 112 H, Carbon Dioxide 18.0 L, Anion Gap 8, BUN 10, Creatinine 0.51 L, Estim Creat Clear Calc 126.62, Est GFR (MDRD) Af Amer 171, Est GFR (MDRD) Non-Af 142, BUN/Creatinine Ratio 19.6, Glucose 99, Calcium 8.1 L, Triglycerides 196, Cholesterol 173, LDL Cholesterol 98, VLDL Cholesterol 39, HDL Cholesterol 36 L, TSH 1.86 02/04/19 04:36: WBC 7.0, RBC 4.08 L, Hgb 11.8 L, Hct 35.6 L, MCV 87.3, MCH 28.9, MCHC 33.1, RDW 14.1, RDW Differential 45.3 H, Plt Count 282, MPV 9.6, Immature Gran % (Auto) 0.100, Neut % (Auto) 62.7, Lymph % (Auto) 30.3, [place] % (Auto) 6.5, Eos % (Auto) 0.1, Baso % (Auto) 0.3, Absolute Neuts (auto) 4.4, Absolute Lymphs (auto) 2.13, Total Counted Not Reportable 02/04/19 04:36: PT 13.0, INR 1.0, APTT 31.3 02/04/19 04:36: Troponin I 4.460 H* 02/04/19 06:37: POC Glucose 117 H 02/04/19 06:55: Serum , Qual NEGATIVE Current Medications Aspirin (Ecotrin) 81 mg PO DAILY@0800 [facility] Last Admin: 02/04/19 05:46 Dose: 81 mg Atorvastatin Calcium (Lipitor) 80 mg PO QHS [facility] Clopidogrel Bisulfate (Plavix) 75 mg PO DAILY [facility] Heparin Sodium (Porcine) (Heparin Na) 0 unit IV UD PRN; Protocol Last Admin: 02/03/19 22:33 Dose: 3,000 unit Sodium Chloride () 1,000 mls @ 75 mls/hr IV .[id number] [facility] Last Admin: 02/04/19 03:33 Dose: 75 mls/hr Sodium Chloride () 1,000 mls @ 0 mls/hr IV .Q0M [facility] Sodium Chloride () 1,000 mls @ 75 mls/hr IV .[id number] [facility] Ibuprofen (Motrin) 600 mg PO Q8H PRN PRN PRN Reason: MILD PAIN (1-3) Isosorbide Mononitrate (Imdur) 30 mg PO DAILY [facility] Last Admin: 02/04/19 10:37 Dose: 30 mg Magnesium Hydroxide (Milk Of Magnesia) 30 ml PO DAILY PRN PRN Reason: Constipation Meclizine HCl (Antivert) 25 mg PO TID PRN PRN PRN Reason: DIZZINESS Metoprolol Tartrate (Lopressor (Beta [place])) 25 mg PO BID [facility] Morphine Sulfate () 1 mg IV Q3H PRN PRN PRN Reason: SEVERE PAIN (6-10) Ondansetron HCl (Zofran) 4 mg IV Q6H PRN PRN PRN Reason: NAUSEA/VOMITING Pantoprazole Sodium (Protonix) 40 mg PO DAILY [facility] Last Admin: 02/04/19 10:37 Dose: 40 mg Medical Necessity - Tobacco Use Smoking Status: Current every day smoker Tobacco Use: Cigarettes Assessment/Plan All Active Problems NSTEMI (non-ST elevated myocardial infarction) (Acute) Chest pain (Acute) 38 years old female admitted with chest pain, found to have abnormal cardiac enzymes and subtle EKG changes. 1. Acute NSTEMI,s/p cardiac cath, findings show small obtuse marginal branch disease, medical management recommended on aspirin, statin, Plavix, Imdur, metoprolol 2. Type 2 DM, less sugars are stable, continue to monitor 3. GERD, on PPI. 4. DVT prophylaxis - received Heparin drip today, will start Heparin SC from tonight. Code Visit Inpatient E&M: 61352 Subs Hosp L2
[2019-02-04 11:21] LABS: Bedside Glucose 115 mg/dL (70-110)
--- NOTE | 2019-02-04 11:35 | CASEMGMT ---
RN KASEY Face to Face with patient for initial transition planning/care coordination assessment. RN CM introduced self and role at [facility]. Patient lying in bed, alert and oriented, mother and at bedside. Patient willing to participate in assessment and is able to answer all questions appropriately. Care providers, pharmacy, and demographics verified. Patient wishes to discharge home, denies need for home health at this time. Patient states she has no further needs or concerns at this time. CM to follow for discharge planning needs that may arise. PCP: Sarahi Specialists: None Preferred Pharmacy: [facility] Insurance: [facility] community plan Prescription Benefit: Yes Living Will/HPOA: none LNOK: , mother Living Arrangements: patient lives with in an apartment with setup on first floor. Patient states she is independent at home. Transportation: self, DME/HHC: Patient denies DME and no previous HHC Disposition Plan: Patient to discharge home with family support and follow-up plans in place. Marce RYAN, RN, CM
[2019-02-04] MEDS: Ibuprofen 600 MG Tablet PO (14:04)
[2019-02-04 16:11] LABS: Bedside Glucose 118 mg/dL (70-110)
[2019-02-04] MEDS: Atorvastatin Calcium 80 MG Tablet PO (21:29)
[2019-02-04] MEDS: Metoprolol Tartrate 25 MG Tablet PO (21:29)
[2019-02-04 22:56] LABS: Bedside Glucose 103 mg/dL (70-110)
[2019-02-05 03:00] VITALS: BP 101/54; PULSE 64; RESP 16; TEMP 36.3; O2SAT 98
[2019-02-05 03:03] VITALS: PULSE 74
[2019-02-05 06:20] LABS: Hematocrit 33.9 % (37-47); Hemoglobin 11.1 g/dl (12.0-15.0)
[2019-02-05 06:35] LABS: Anion Gap 4 (5-15); BUN 10 mg/dL (7-18); BUN/Creat Ratio 18.3 RATIO (10-20); Chloride 110 mmol/L (98-107); Creatinine, Serum 0.55 mg/dL (0.55-1.02); EST Glomerular Filtration Rate 131 mL/min (>60); Est Glom Filt Rate - Afr Amer 158 mL/min (>60); Estimated Creatinine Clearance 117.41 ml/min; Glucose 98 mg/dL (74-106); Potassium 3.9 mmol/L (3.5-5.1); Sodium Level 139 mmol/L (136-145)
[2019-02-05 06:50] LABS: Bedside Glucose 107 mg/dL (70-110)
[2019-02-05 07:10] VITALS: PULSE 80
[2019-02-05 08:00] VITALS: O2SAT 94
[2019-02-05 08:10] VITALS: BP 127/70; PULSE 77; RESP 16; TEMP 36.8; O2SAT 96
[2019-02-05 08:16] VITALS: PULSE 77
[2019-02-05] MEDS: Metoprolol Tartrate 25 MG Tablet PO (08:16)
[2019-02-05] MEDS: Clopidogrel Bisulfate 75 MG Tablet PO (08:17)
[2019-02-05] MEDS: Aspirin E.C. 81 MG Tablet PO (08:17)
[2019-02-05] MEDS: Pantoprazole Sodium 40 MG Tablet PO (08:17)
[2019-02-05] MEDS: Isosorbide Mononitrate 30 MG Tablet PO (08:17)
--- NOTE | 2019-02-05 09:50 | PCM.PN.CARD ---
Subjectve: The patient is awake and alert. She denies ongoing chest discomfort or difficulty breathing. She denies any ongoing right upper extremity discomfort or concerns. She has been up and ambulating. Objective: Vital Signs Temp Pulse Resp BP Pulse Ox 98.3 F 77 16 127/70 H 96 02/05/19 08:10 02/05/19 08:16 02/05/19 08:10 02/05/19 08:10 02/05/19 08:10 Oxygen Delivery Method Room Air Weight: 304 lb 14.389 oz Body Mass Index (BMI) 52.3 Intake and Output for Last 24 Hours 02/03/19 02/04/19 02/05/19 23:59 23:59 23:59 Intake Total 2330 / 2330 1511.5 / 1511.5 120 / 120 Balance 2330 / 2330 1511.5 / 1511.5 120 / 120 General: Awake, Alert, Oriented x 3, Cooperative, No Acute Distress, Obese HEENT: Atraumatic, Normocephalic, PERRL, EOMI, Sclera Non Icteric Oral: Moist Mucosa Neck: Supple, Good ROM, No JVD Lungs: Clear to auscultation Cardiovascular: Regular Rhythm, Normal S1, Normal S2 Vascular: Normal Radial Pulses Abdomen: Bowel Sounds Present, Soft, Non Tender, Obese Extremities: No edema Neurological: No Focal Motor or Sensory Deficit Psych/Mental Status: Appropriate 02/05/19 05:35: Hgb 11.1 L, Hct 33.9 L 02/05/19 05:35: Sodium 139, Potassium 3.9, Chloride 110 H, Carbon Dioxide 25.0, Anion Gap 4 L, BUN 10, Creatinine 0.55, Est GFR (MDRD) Af Amer 158, Est GFR (MDRD) Non-Af 131, BUN/Creatinine Ratio 18.3, Glucose 98, Calcium 8.0 L Rhythm: Sinus rhythm Medical Necessity - Tobacco Use Smoking Status: Current every day smoker Tobacco Use: Cigarettes Assessment/Plan 1. Acute non-ST segment elevation OK The patient presents with symptoms concerning for unstable angina pectoris and subsequent findings of an indeterminate troponin I level and an abnormal ECG all raising concerns of an acute non-ST segment elevation OK. Troponin I levels have decreased. Her ECG has returned to baseline. She is now status post coronary angiography via the right radial artery approach. As noted above her epicardial coronary vessels were patent with no angiographically significant appearing disease appreciated. And LCx/OM small side branch vessel demonstrated ostial/proximal narrowing which appeared to be a culprit lesion and matching the distribution of her ECG changes. As noted above this was reviewed by Dr. Hooper of the interventional team who did not recommend further catheter-based revascularization therapy based upon this vessel being a small side branch vessel. The recommendation was for continued medical management. Her transthoracic echocardiogram was performed. Her overall LV systolic function appears to be preserved. She will continue medical management with future outpatient cardiovascular follow-up and outpatient cardiovascular rehabilitation therapy. 2. Hyperlipidemia Based upon her clinical event and objective findings she will continue lipid-lowering therapy with statins. 3. Diabetes mellitus She states she has been off of her oral diabetic therapy for some time now. Future diabetes evaluation care will need to be under the direction of internal medicine. Comment: The above was discussed and reviewed with the patient's family members present. This note was generated with [employer] dictation software. It may contain incorrect words, spelling, and punctuation that were not noted in checking the note before signing.
--- NOTE | 2019-02-05 10:00 | DCINST_ITS ---
- Discharge Diagnoses Current Active Problems: Current Active and Chronic Problems (Last Updated 02/05/19 @ 08:22 by Laura Farrell) Atherosclerotic heart disease of [place] coronary artery without angina pectoris (Chronic) LHC: OM1: Distal-sm. side branch vessel w/ ostial/proximal 95% stenosis; Mid LAD 25% stenosis 02/04/19 NSTEMI (non-ST elevated myocardial infarction) (Acute) HLD (hyperlipidemia) (Chronic) Chest pain (Acute) GERD (gastroesophageal reflux disease) (Chronic) Diet-controlled diabetes mellitus (Chronic) Reason(s) for Visit for Discharge Instructions: CHEST PAIN You will use the following diet at home:: Calorie/Carbohydrate Controlled (specify 1200, 1400, etc), Cardiac Your food should be the consistency of: Regular Your liquids should be the consistency of: Regular/Thin Discharge Activity: Return to Normal Activity Weight Bearing Status: Weight bearing as tolerated Additional Instructions: Take note of your new medications. Continue on all your medication. Follow-up with Dr. Rush in 2 weeks. Continue on a low- fat, low-salt, low calorie diet. Continue to remain active. Allergies/Adverse Reactions: Allergies hydrocodone bitartrate [From Vicodin] Allergy (Mild, Verified 02/03/19 09:08) Hives acetaminophen [From Vicodin] Allergy (Verified 02/03/19 06:45) Unknown oxycodone [From Percocet] Adverse Reaction (Verified 02/03/19 09:08) Hives cold medicine Allergy (Uncoded 02/03/19 09:08) Hives Medications to take at Discharge Cetirizine HCl 10 mg PO DAILY 02/03/19 Norgestimate-Ethinyl Estradiol [Tri-Sprintec Tablet] 1 each PO DAILY 02/03/19 Aspirin E.C. [Ecotrin] 81 mg PO DAILY@0800 #30 tablet 02/05/19 Atorvastatin Calcium [Lipitor] 80 mg PO QHS #30 tablet 02/05/19 Clopidogrel Bisulfate [Plavix] 75 mg PO DAILY #30 tablet 02/05/19 Isosorbide Mononitrate [Imdur] 30 mg PO DAILY #30 tablet 02/05/19 Meclizine HCl 25 mg PO DAILY PRN #0 02/05/19 Metoprolol Tartrate [Lopressor (beta tracy)] 25 mg PO BID #60 tablet 02/05/19 The following prescriptions were given: Aspirin E.C. [Ecotrin] 81 mg PO DAILY@0800 #30 tablet Atorvastatin Calcium [Lipitor] 80 mg PO QHS #30 tablet Clopidogrel Bisulfate [Plavix] 75 mg PO DAILY #30 tablet Isosorbide Mononitrate [Imdur] 30 mg PO DAILY #30 tablet Metoprolol Tartrate [Lopressor (beta tracy)] 25 mg PO BID #60 tablet Primary Care Physician: Missy Mcclain DO [Primary Care Provider] - Please follow up with your Primary Care Physician in: within 1-2 weeks Test Results: Test results from this visit will be discussed in further detail at your follow- up appointment, if applicable. Please Follow Up With: Faizan Rush MD When: in 2 weeks Proposed Discharge Date: 02/05/19
--- NOTE | 2019-02-05 10:00 | PCM.DC.SUM ---
Discharge Date and Diagnosis Date of Admission: 02/03/19 Date of Discharge: 02/05/19 - Primary Discharge Diagnosis Active and Suspected Problems (Last Updated 02/05/19 @ 08:22 by Laura Farrell) NSTEMI (non-ST elevated myocardial infarction) (Acute) Chest pain (Acute) - Secondary Discharge Diagnosis Chronic Problems (Last Updated 02/05/19 @ 08:22 by Laura Farrell) Atherosclerotic heart disease of [place] coronary artery without angina pectoris (Chronic) LHC: OM1: Distal-sm. side branch vessel w/ ostial/proximal 95% stenosis; Mid LAD 25% stenosis 02/04/19 HLD (hyperlipidemia) (Chronic) GERD (gastroesophageal reflux disease) (Chronic) Diet-controlled diabetes mellitus (Chronic) Hospital Course and Treatment Imaging Results: Clinical Impression(s) from Imaging Studies Chest X-Ray 02/03/19 07:11 IMPRESSION: Normal x-ray examination of the chest. No acute findings in the lungs Electronically Signed: Demetrius Kerr MD at 7:22 EDT Tel , Service support , Cardiology Operations: None Procedures: - - s/p cardiac cath Summary of Care Provided: 38 years old female admitted with chest pain, found to have abnormal cardiac enzymes and subtle EKG changes. Active management was as follows: 1. Acute NSTEMI, cardiology consulted, s/p cardiac cath, findings show small obtuse marginal branch disease, medical management recommended on aspirin, statin, Plavix, Imdur, metoprolol 2. Type 2 DM, blood sugars are stable 3. GERD, on PPI. Subjective: On the day of discharge, patient was seen and examined, no new complaints, she denied any more chest pain. No acute events overnight. Objective: Physical exam: General: Awake, Alert, Oriented x 3, Cooperative, No Acute Distress, Obese HEENT: Atraumatic, Normocephalic, PERRL, EOMI, Sclera Non Icteric Oral: Moist Mucosa Neck: Supple, Good ROM, No JVD Lungs: Clear to auscultation Cardiovascular: Regular Rhythm, Normal S1, Normal S2 Vascular: No Carotid Bruits Abdomen: Bowel Sounds Present, Soft, Non Tender, Obese Extremities: Tenderness about her right wrist cardiac cath site. Able to wiggle her fingers, no change in color, no differential warmth. Neurological: No Focal Motor or Sensory Deficit Psych/Mental Status: Appropriate - Physical Exam Vital Signs Temp Pulse Resp BP Pulse Ox 98.3 F 77 16 127/70 H 96 02/05/19 08:10 02/05/19 08:16 02/05/19 08:10 02/05/19 08:10 02/05/19 08:10 Oxygen Delivery Method Room Air Weight: 138.3 kg Body Mass Index (BMI) 52.3 Intake and Output for Last 24 Hours 02/03/19 02/04/19 02/05/19 23:59 23:59 23:59 Intake Total 2330 / 2330 1511.5 / 1511.5 120 / 120 Balance 2330 / 2330 1511.5 / 1511.5 120 / 120 Laboratory Tests Past 24 Hrs 02/05/19 02/05/19 05:35 05:35 Hgb 11.1 L Hct 33.9 L Sodium 139 Potassium 3.9 Chloride 110 H Carbon Dioxide 25.0 Anion Gap 4 L BUN 10 Creatinine 0.55 Estim Creat Clear Calc 117.41 Est GFR (MDRD) Af Amer 158 Est GFR (MDRD) Non-Af 131 BUN/Creatinine Ratio 18.3 Glucose 98 Calcium 8.0 L POC Glucose 02/05/19 02/04/19 02/04/19 06:40 21:31 16:01 POC Glucose 107 103 118 H 02/04/19 11:11 POC Glucose 115 H Discharge Diet: Low fat/ Low Cholesterol, 2000 mg Sodium Diet Discharge Activity: Return to Normal Activity Weight Bearing Status: Weight bearing as tolerated Home Medications: Medications to take at Discharge Cetirizine HCl 10 mg PO DAILY 02/03/19 Norgestimate-Ethinyl Estradiol [Tri-Sprintec Tablet] 1 each PO DAILY 02/03/19 Aspirin E.C. [Ecotrin] 81 mg PO DAILY@0800 #30 tab 02/05/19 Atorvastatin Calcium [Lipitor] 80 mg PO QHS #30 tab 02/05/19 Clopidogrel Bisulfate [Plavix] 75 mg PO DAILY #30 tab 02/05/19 Isosorbide Mononitrate [Imdur] 30 mg PO DAILY #30 tab 02/05/19 Meclizine HCl 25 mg PO DAILY PRN #0 04/30/19 Metoprolol Tartrate [Lopressor (beta tracy)] 25 mg PO BID #60 tab 02/05/19 Following Prescrptions Were Given to Patient: Aspirin E.C. [Ecotrin] 81 mg PO DAILY@0800 #30 tab Atorvastatin Calcium [Lipitor] 80 mg PO QHS #30 tab Clopidogrel Bisulfate [Plavix] 75 mg PO DAILY #30 tab Isosorbide Mononitrate [Imdur] 30 mg PO DAILY #30 tab Metoprolol Tartrate [Lopressor (beta tracy)] 25 mg PO BID #60 tab Primary Care Physician: Missy Mcclain DO [Primary Care Provider] - Please follow up with your Primary Care Physician in: within 1-2 weeks Please Follow Up With: Faizan Rush MD When: in 2 weeks Disposition: Home Minutes spent on discharge:: 40 Patient Condition:: Stable Medical Necessity - Tobacco Use Smoking Status: Current every day smoker Tobacco Use: Cigarettes Meaningful Use Info Meaningful Use Diagnoses (Choose all that apply): None applicable Code Visit Inpatient E&M: 36062 Disch Hosp
--- NOTE | 2019-02-05 11:23 | PHA.DC.MC ---
Pharmacy Service has performed discharge medication reconciliation and counseling for this patient. The patient's discharge medication list was reviewed for discrepancies and discrepancies were resolved. The patient was counseled on the following discharge medications and changes in medications for homegoing were reviewed. 1. METOPROLOL TARTRATE 2. ISOSORBIDE MONONITRATE 3. CLOPIDOGREL 4. ATORVASTATIN 5. ASPIRIN The Reason for Use, instructions for use, and potential side effects were reviewed for all new medications. The patient's questions regarding all of their medications were answered. The patient was able to verbally demonstrate an understanding of their discharge medications. Home Medications Cetirizine HCl 10 mg PO DAILY 02/03/19 Norgestimate-Ethinyl Estradiol [Tri-Sprintec Tablet] 1 each PO DAILY 02/03/19 Aspirin E.C. [Ecotrin] 81 mg PO DAILY@0800 #30 tablet 02/05/19 Atorvastatin Calcium [Lipitor] 80 mg PO QHS #30 tablet 02/05/19 Clopidogrel Bisulfate [Plavix] 75 mg PO DAILY #30 tablet 02/05/19 Isosorbide Mononitrate [Imdur] 30 mg PO DAILY #30 tablet 02/05/19 Meclizine HCl 25 mg PO DAILY PRN #0 02/05/19 Metoprolol Tartrate [Lopressor (beta tracy)] 25 mg PO BID #60 tablet 02/05/19
== END 2019-02-05 11:46 | disposition home or self-care (01) | DRG 190 ==
LOC: ED 07:11 → PCU 08:40
PROVIDERS: Internal Medicine Cardiovascular Disease; Admitting Provider Hospitalist; Emergency Provider Emergency Medicine; Visit Provider Internal Medicine
DX: I21.4 Non-ST elevation (NSTEMI) myocardial infarction (principal); E11.9 Type 2 diabetes mellitus without complications; E78.5 Hyperlipidemia, unspecified; I25.10 Atherosclerotic heart disease of native coronary artery without angina pectoris; F17.210 Nicotine dependence, cigarettes, uncomplicated; K21.9 Gastro-esophageal reflux disease without esophagitis; E66.9 Obesity, unspecified; Z68.43 Body mass index [BMI] 50.0-59.9, adult
CPT/HCPCS: 36415; 71045; 80048; 80061; 82962; 83036; 84443; 84484; 84703; 85014; 85018; 85025; 85379; 85610; 85730; 93005; 93306; 93454; 99285; 99406; J7030; Q9957; Q9967; A4216; C1769; C1894; C8929

== ENCOUNTER → 2019-04-30 | Outpatient (REF) | payer MEDICAID, SELFPAY ==
[2019-04-25 15:35] VITALS: BMI 51.6
== END | disposition home or self-care (01) ==
LOC: CVS 12:50
PROVIDERS: Referring Provider Internal Medicine Cardiovascular Disease; Visit Provider Internal Medicine Cardiovascular Disease
DX: R55 Syncope and collapse (principal); I25.10 Atherosclerotic heart disease of native coronary artery without angina pectoris; I21.4 Non-ST elevation (NSTEMI) myocardial infarction
CPT/HCPCS: 93270

== ENCOUNTER 2023-01-26 10:55 | Emergency (ER) | payer MEDICAID, SELFPAY ==
[2023-01-26 10:57] VITALS: BP 162/90; PULSE 118; RESP 16; TEMP 36.6; O2SAT 100; BMI 48.0
--- NOTE | 2023-01-26 11:28 | EKG12_ITS ---
Test Reason : GENERAL Blood Pressure : / mmHG Vent. Rate : 091 BPM Atrial Rate : 091 BPM P-R Int : 148 ms QRS Dur : 076 ms QT Int : 350 ms P-R-T Axes : 036 045 042 degrees QTc Int : 430 ms Normal sinus rhythm Possible Left atrial enlargement Borderline ECG Confirmed by HARIS NAJERA, COURT ([id number]), graphics editor EVA ANGEL ([id number]) on 01/30/2023 11:43:14 AM Referred By: Confirmed By:COURT CARBALLO MD
--- NOTE | 2023-01-26 11:38 | ED.VIS.LOWEX ---
HPI History of Present Illness Chief Complaint: Lower Extremity Injury Narrative Narrative: Patient presents with a left second toe pain. Is been going on about a week. She states if she lifts it up and lays down the pain does increase. If she hangs it over the bed it does get a little better. No fevers chills or sweats. She denies any trauma or injury to her toe at all. She says its been darker color than the other toes. No history of gout. I discussed further with the patient. She is a smoker and was counseled to quit. I find out that her father all had Buerger's disease. I had discussed with that is possible that that is the cause of her symptoms. Then she let me know about her father's history. Patient has never had atrial fibrillation. She does have history of heart disease. She had a heart attack about 4 years ago. She is on Plavix and aspirin. She has been taking all her medicines. Her only complaint is that there is pain in the tip of the left second toe. She states other than that she feels fine. [facility] Medical History (Updated 01/26/23 @ 14:[address] Mayank Adan MD) Atherosclerotic heart disease of [place] coronary artery without angina pectoris Chest pain Diet-controlled diabetes mellitus GERD (gastroesophageal reflux disease) HLD (hyperlipidemia) NSTEMI (non-ST elevated myocardial infarction) Home Medications cetirizine 5 mg tablet 10 mg PO DAILY ALLERGIES 02/03/19 [History Last Taken Unknown] meclizine 25 mg tablet 25 mg PO DAILY PRN Dizziness ##0 02/05/19 [Rx Last Taken Unknown] Blood pressure monitor #1 ea 04/25/19 [Rx Last Taken Unknown] compression stockings #1 ea 04/25/19 [Rx Last Taken Unknown] fluticasone propionate 50 mcg/actuation nasal spray,suspension 1 spray intranasal DAILY 08/21/19 [History Last Taken Unknown] vrdtvfcjrncj-Be-plbb-minerals (Multiple Vitamin, Womens tablet) tab PO DAILY 08/21/19 [History Last Taken Unknown] trazodone 50 mg tablet 50 mg PO QHS 08/21/19 [History Last Taken Unknown] clopidogrel 75 mg tablet 75 mg PO DAILY #90 tabs 04/22/20 [Rx Last Taken Unknown] metoprolol tartrate 25 mg tablet 12.5 mg PO BID #90 tabs 04/22/20 [Rx Last Taken Unknown] aspirin 81 mg tablet,delayed release 81 mg PO DAILY #90 tabs 04/16/21 [Rx Last Taken Unknown] atorvastatin 80 mg tablet 80 mg PO QHS #90 tabs 03/25/22 [Rx Last Taken Unknown] nitroglycerin 2 % transdermal ointment (Nitro-Bid) 0.3 inch transdermal Q8H PRN PRN pain #30 grams 01/26/23 [Rx Last Taken Unknown] Allergy/AdvReac Type Severity Reaction Status Date / Time hydrocodone bitartrate Allergy Mild Hives Verified 01/26/23 11:00 [From Vicodin] acetaminophen [From Vicodin] Allergy Unknown Verified 01/26/23 11:00 oxycodone [From Percocet] AdvReac Hives Verified 01/26/23 11:00 cold medicine Allergy Hives Uncoded 01/26/23 11:00 Family History Father Hypertension CVA (cerebral vascular accident) Mother Diabetes Hyperlipidemia Hypertension Surgical History Status post left heart catheterization (LHC) (~02/04/19) Social History Smoking Status: Current every day smoker tobacco type: cigarettes ROS ROS ED Constitutional Constitutional ED: Denies chills or fever(s) ENT ENT ED: Denies rhinorrhea Cardiovascular Cardiovascular: Denies chest pain, palpitations or racing heartbeat Respiratory/Chest Respiratory/Chest: Denies cough Gastrointestinal Gastrointestinal: Denies nausea or vomiting Musculoskeletal Musculoskeletal: Reports other Details: See history of present ; Denies back pain or neck pain Integumentary Reports other Details: The history of present illness regarding darkening of the 1 toe Neurologic Neurologic: Denies paresthesias or weakness Psychiatric Psychiatric: Reports anxiety Hematologic/Lymphatic Hematologic/Lymphatic: Reports easy bleeding and easy bruising Allergic/Immunologic Allergic/Immunologic ED: Denies urticaria EXAM Physical Exam Narrative Exam Narrative: CONSTITUTIONAL: Patient is nontoxic in appearance. The patient looks comfortable. Work of breathing looks normal. HEENT: No notable trauma. Mucous membranes moist. No sinus tenderness. No indication of pain with swallowing. No intraoral petechiae EYES: No conjunctival injection or pallor. No proptosis. NECK:No JVD. No stridor. CARDIOVASCULAR: Regular rate. Regular rhythm. No notable murmur. No JVD. She sounds to be in a normal sinus rhythm and does not sound like she is in atrial fibrillation but an EKG will be done. RESPIRATORY: No respiratory distress. Breathing is unlabored. No wheezes. No rhonchi. No rales. No pain with a deep breath. No chest wall tenderness. GASTROINTESTINAL: Not distended. Bowel sounds are normal. No tenderness. No guarding. No rebound. No palpable mass. No bruit is heard. GENITOURINARY: No tenderness over the bladder. No CVA tenderness. MUSCULOSKELETAL: Atraumatic. No peripheral edema. No cord. No tenderness along the deep venous system. No asymmetry. No distended veins. However, in the distal tuft mostly on the plantar surface of her left fourth toe is dusky. He has a slow capillary refill. It seems just a little horvath than the other toes. It has some mild tenderness but sensation is still intact. There is no break of the skin. No erythema or sign of infection. NEUROLOGICAL: Patient is alert and appropriate. No focal deficit noted. SKIN: No noted rashes. No diaphoresis. PSYCHIATRIC: Patient is calm. Mood is appropriate. Const Vital Signs: 01/26/23 10:57 01/26/23 13:38 Temperature 97.9 F Temperature Source Temporal Pulse Rate 118 H 84 Respiratory Rate 16 16 Blood Pressure 162/90 H 140/79 H Blood Pressure Mean 114 99 Pulse Ox 100 99 Oxygen Delivery Method Room Air Room Air MDM [facility] MDM Narrative Medical decision making narrative: My independent interpretation the patient's three-view x-ray of her left foot shows no acute process. Final reading is similar. CBC is normal other than mild increase in hemoglobin. Platelets white count is normal. Coagulation studies both PT and PTT are normal. Electrolytes show minimal nonspecific changes of sodium and glucose. No sign of acute kidney injury. I discussed the case with Shira who works with Dr. Cyr who is currently in with the patient. My suspicion is that this patient has some ischemia in the distal fourth toe. No sign or history of atrial fibrillation. I did Doppler and she has excellent posterior tibial and dorsalis pedis pulses in her feet. No sign of any other areas of ischemia. There is no abnormal bruising or any indication of other clot. It was recommended to to do a CTA of the aorta with runoff. This could be done as an outpatient but I offered to do that here. But the patient really does not want to do that here. My suspicion is that this is likely or could be Buerger's disease. She is aggressively recommended to quit smoking. I will write for some Nitropaste and I explained she needs to use only a tiny bit of this on the tip of the toe. She should not get it on other areas. She should use gloves. We discussed about potential side effects. I will write for a few pain meds if we can find one that she is not allergic to. She does not want the CTA today. I agree that I think this is not likely to find any significant lesion that showering but I cannot rule that out without the study. We discussed reasons to return and that follow-up is needed. Lab Data Attestation: I reviewed the patient's lab results. Labs: Laboratory Results - last 24 hr 01/26/23 01/26/23 01/26/23 11:50 11:50 11:50 WBC 9.7 RBC 5.09 Hgb 15.7 H Hct 46.1 MCV 90.6 MCH 30.8 MCHC 34.1 RDW Std Deviation 41.1 RDW Coeff of Mehnaz 12.3 Plt Count 328 MPV 9.0 Immature Gran % (Auto) 0.400 Neut % (Auto) 65.2 Lymph % (Auto) 25.9 [place] % (Auto) 6.1 Eos % (Auto) 1.8 Baso % (Auto) 0.6 Absolute Neuts (auto) 6.3 Absolute Lymphs (auto) 2.51 Nucleated RBC % 0 PT 12.0 INR 0.9 APTT 26.0 Sodium 133 L Potassium 4.2 Chloride 104 Carbon Dioxide 28.0 Anion Gap 1 L BUN 9 Creatinine 0.59 Estim Creat Clear Calc 105.07 Est GFR (MDRD) Af Amer 143 Est GFR (MDRD) Non-Af 118 BUN/Creatinine Ratio 15.3 Glucose 109 H Calcium 9.5 Radiography Diagnostic Testing: Clinical Impression(s) from Imaging Studies Foot X-Ray 01/26/23 11:50 IMPRESSION: Calcaneal spurs. Old fracture of the tibial aspect of the navicular bone. Electronically Signed: Sid Fitzgerald MD at 12:11 EDT , EKG Initial EKG: Comments: My independent interpretation of the patient's EKG looking for dysrhythmia shows a normal sinus rhythm with overall rate of 91. No ectopy. No acute ST elevation or depression. PA interval, QRS duration and QTc are all normal. The EKG is similar to 1 from 04 February 2019. Discharge Plan Triage Chief Complaint: Lower Extremity Injury ED Provider: Mayank Adan Dx/Rx/DC Orders Clinical Impression: Ischemic toe, Buerger disease Instructions: Health Effects of Smoking Prescriptions: New Nitro-Bid 2 % ointment 0.3 inch transdermal Q8H PRN PRN (Reason: pain) Qty: 30 0RF Rx Instructions: allow nitrate-free interval of approx. 10-12 hrs per 24-hour period Use a small amount on the tip of your affected toe. Make sure you use gloves and do not get on any other area. No Action (DME) compression stockings Qty: 1 3RF Rx Instructions: As directed: 20-30 mmHg (DME) Blood pressure monitor Qty: 1 3RF Rx Instructions: As directed trazodone 50 mg tablet 50 mg PO QHS fluticasone propionate 50 mcg/actuation spray,suspension 1 spray INTRANASAL DAILY Multiple Vitamin, Womens Tablet PO DAILY cetirizine 5 MG tablet 10 mg PO DAILY meclizine 25 MG tablet 25 mg PO DAILY PRN (Reason: Dizziness) Qty: 0 0RF clopidogrel 75 mg tablet 75 mg PO DAILY Qty: 90 3RF metoprolol tartrate 25 mg tablet 12.5 mg PO BID Qty: 90 3RF aspirin 81 mg tablet,delayed release (DR/EC) 81 mg PO DAILY Qty: 90 3RF atorvastatin 80 mg tablet 80 mg PO QHS Qty: 90 3RF Primary Care Provider: Missy Mcclain Referrals: Roger Cyr MD [Med Staff - Active Staff] - As soon as possible Missy Mcclain, [Primary Care Provider] - Disposition Disposition: Home, Self Care
--- NOTE | 2023-01-26 11:50 | RAD_ITS ---
STUDY: X-RAY - LEFT FOOT CLINICAL: Female, 42 years old. Pain of the fourth toe. TECHNIQUE: 3 view(s) of the foot. COMPARISON: None. FINDINGS: Calcaneal spurs. Normal visualized subtalar, talonavicular, calcaneocuboid, tarsal and tarsometatarsal articulations. Old fracture of the tibial aspect of the navicular bone. Normal metatarsi. Normal metatarsophalangeal joint of the great toe. There is a bipartite tibial sesamoid. Normal interphalangeal joint of the great toe. Normal phalanges of the great toe. Normal second through fifth metatarsophalangeal joints. Normal interphalangeal joints and phalanges of the lesser toes. The soft tissue structures are unremarkable. RAD/Foot min 3 Views IMPRESSION: Calcaneal spurs. Old fracture of the tibial aspect of the navicular bone. Electronically Signed: Sid Fitzgerald MD at 12:11 EDT ,
[2023-01-26 11:57] LABS: Absolute Lymphocyte Count 2.51 X10^3/uL (0.83-4.51); Absolute Neutrophil Count 6.3 X10^3/uL (2.0-7.7); Basophil# 0.06 X10^3/uL; Basophil% 0.6 % (0-1); Eosinophil# 0.17 X10^3/uL; Eosinophils% 1.8 % (0-5); Hematocrit 46.1 % (37-47); Hemoglobin 15.7 g/dL (12.0-15.0); Lymphocyte # 2.51 X10^3/ul (0.83-4.51); Lymphocyte % 25.9 % (19-41); Mean Corp Hgb Conc 34.1 g/dL (32-36); Mean Corpuscular Hgb 30.8 pg (27.0-32.0); Mean Corpuscular Volume 90.6 fL (81-99); Monocyte# 0.59 X10^3/uL; Monocyte% 6.1 % (0-10); NRBC Flagged by Analyzer 0 % (0-5); Neutrophil # 6.33 X10^3/uL (2.7-7.7); Neutrophil % 65.2 % (47-70); Platelet Count 328 K/mm3 (150-450); RBC Distribution Width CV 12.3 % (11.6-14.6); RBC Distribution Width SD 41.1 fl (35.1-43.9); Red Blood Count 5.09 M/mm3 (4.2-5.4); White Blood Count 9.7 K/mm3 (4.4-11.0)
[2023-01-26 12:12] LABS: International Normalized Ratio 0.9
[2023-01-26 12:15] LABS: Anion Gap 1 (5-15); BUN 9 mg/dL (7-18); BUN/Creat Ratio 15.3 RATIO (10-20); Calcium,Total 9.5 mg/dL (8.5-10.1); Chloride 104 mmol/L (98-107); Creatinine, Serum 0.59 mg/dL (0.55-1.02); EST Glomerular Filtration Rate 118 mL/min (>60); Est Glom Filt Rate - Afr Amer 143 mL/min (>60); Estimated Creatinine Clearance 105.07 ml/min; Glucose 109 mg/dL (74-106); Potassium 4.2 mmol/L (3.5-5.1); Sodium Level 133 mmol/L (136-145)
[2023-01-26 13:38] VITALS: BP 140/79; PULSE 84; RESP 16; O2SAT 99
[2023-01-26 14:19] VITALS: BP 128/68; PULSE 74; RESP 16; O2SAT 99
== END 2023-01-26 14:20 | disposition home or self-care (01) ==
PROVIDERS: Emergency Provider Emergency Medicine; Visit Provider Emergency Medicine
DX: I73.1 Thromboangiitis obliterans [Buerger's disease] (principal); I25.10 Atherosclerotic heart disease of native coronary artery without angina pectoris; E78.5 Hyperlipidemia, unspecified; Z79.02 Long term (current) use of antithrombotics/antiplatelets; Z79.82 Long term (current) use of aspirin; I25.2 Old myocardial infarction; Z79.899 Other long term (current) drug therapy; F17.210 Nicotine dependence, cigarettes, uncomplicated; M62.28 Nontraumatic ischemic infarction of muscle, other site
CPT/HCPCS: 73630; 80048; 85025; 85610; 85730; 93005; 99284; A4216

== ENCOUNTER → 2023-02-10 | Outpatient (CLI) | payer MEDICAID, SELFPAY | END | disposition home or self-care (01) | LOC: CVS 07:40 | PROVIDERS: Referring Provider Physician Assistant; Visit Provider Physician Assistant | DX: I73.9 Peripheral vascular disease, unspecified (principal) ==

== ENCOUNTER → 2023-02-10 | Outpatient (CLI) | payer MEDICAID, SELFPAY ==
--- NOTE | 2023-02-10 07:46 | CT_ITS ---
STUDY: CTA OF THE ABDOMINAL AORTA AND BILATERAL LOWER EXTREMITIES REASON FOR EXAM: Female, 42 years old. Ischemic L 4th toe, blue toe syndrome RADIATION DOSAGE (If Supplied By Facility): CTDIvol = ( 9.71 ) mGy, DLP = ( 1845.90 ) mGycm TECHNIQUE: Axial CT angiography multi-detector data acquisition was obtained from the dome of the liver to the level of the ankles following intravenous administration of IV 100mL Isovue-370. Axial images and MIP images were reconstructed from the axial data set. Post-processing of the angiographic images was performed, with multiplanar reformation and 3D reconstruction. Individualized dose optimization techniques were used for this CT. TECHNICAL QUALITY: Good COMPARISON: None. Descriptors of Narrowing: None (0%) Mild (< 50%) Moderate (50-70%) Severe (70-90%) Subtotal/Total Occlusion (90-100%) Non-Evaluable (technically non-diagnostic FINDINGS: Diffuse fatty infiltration of the liver. Abdominal aorta: Atherosclerotic calcific plaques in the distal abdominal aorta. Mild mural thrombus in the distal abdominal aorta. Celiac and superior mesenteric arteries: No demonstrated narrowing. Inferior mesenteric artery: No demonstrated narrowing. Right renal artery(arteries): No demonstrated narrowing. Left renal artery(arteries): No demonstrated narrowing. Right common iliac artery: No demonstrated narrowing. Right external iliac artery: No demonstrated narrowing. Right internal iliac artery: No demonstrated narrowing. Left common iliac artery: Calcific plaques in the left common iliac artery with the areas of the tight stenosis. Left external iliac artery: No demonstrated narrowing. Left internal iliac artery: No demonstrated narrowing. RIGHT LOWER EXTREMITY Right common femoral artery: No demonstrated narrowing. Right profundus femoris: No demonstrated narrowing. Right superficial femoral: No demonstrated narrowing. Right popliteal artery: No demonstrated narrowing. Right tibioperoneal trunk: No demonstrated narrowing. Right anterior tibial artery: No demonstrated narrowing. Right posterior tibial artery: No demonstrated narrowing. Right peroneal artery: No demonstrated narrowing. LEFT LOWER EXTREMITY Left common femoral artery: No demonstrated narrowing. Left profundus femoris: No demonstrated narrowing. Left superficial femoral: No demonstrated narrowing. Left popliteal artery: No demonstrated narrowing. Left tibioperoneal trunk: No demonstrated narrowing. Left anterior tibial artery: No demonstrated narrowing. Left posterior tibial artery: No demonstrated narrowing. Left peroneal artery: No demonstrated narrowing. CT/CTA Abd w/Runoff W/WO Contrast IMPRESSION: Atherosclerotic calcific plaques in the distal abdominal aorta with a mild degree of mural thrombus. Calcific plaques in the proximal left common iliac artery with areas of tight stenosis. Electronically Signed: Sid Fitzgerald MD at 10:43 EDT ,
--- NOTE | 2023-02-10 08:03 | ART_ITS ---
Reason For Study: PVD Procedure A bilateral lower extremity continuous wave Doppler with analog waveform analysis,segmental pressures,and ankle brachial indexes without exercise. Left Segmental Pressures Left brachial= 160mmHg. Left thigh = 148mmHg. Left calf = 94mmHg. Left posterior tibial artery = 94mmHg. Left dorsalis pedis artery = 80mmHg. Left digit = 76 mmHg. The left dorsalis pedis waveforms are monophasic. The left posterior tibial artery waveforms are biphasic. Right Segmental Pressures Right brachial= 160mmHg. Right posterior tibial artery = 177mmHg. Right dorsalis pedis artery = 184mmHg. Right digit = 143 mmHg. The right dorsalis pedis waveforms are triphasic. The right posterior tibial artery waveforms are triphasic. Indices The right ankle brachial index by the dorsalis pedis is 1.15. The right ankle brachial index by the posterior tibial artery is 1.11. The right digital-brachial index is 0.89. The left ankle brachial index by the dorsalis pedis is 0.50. The left ankle brachial index by the posterior tibial artery is 0.59. The left digital-brachial index is 0.48. VL/Lower Ext Art Exam w/o Exercis Interpretation Summary Right TORRI 1.15, normal. TBI and Doppler/PVR waveforms of the right leg normal a t rest. Left TORRI 0.59, moderate arterial insufficiency. Doppler/PVR waveforms and segme ntal pressures reveal aorto-iliac proximal femoral diease, distal SFA/popliteal disease. Ordering Physician: Shira Sharma Referring Physician: Missy Mcclain Performed By: Marce Mcclellan RVT
== END | disposition home or self-care (01) ==
LOC: CT 07:39
PROVIDERS: Referring Provider Physician Assistant; Visit Provider Physician Assistant
DX: I99.8 Other disorder of circulatory system (principal); I73.9 Peripheral vascular disease, unspecified; I70.0 Atherosclerosis of aorta
CPT/HCPCS: 75635; 93923; Q9967

== ENCOUNTER → 2023-03-08 | Outpatient (CLI) | payer MEDICAID, SELFPAY ==
--- NOTE | 2023-03-08 10:42 | ECHOD_ITS ---
Reason For Study: Atherosclerotic heart disease Procedure This was a 2D Doppler, Color Flow transthoracic echocardiogram. Exam performed in department. Left Ventricle Normal LV size. Left ventricular systolic function is normal. The estimated ejection fraction is 60 %. Stage 1 diastolic dysfunction. No regional wall motion abnormalities noted. Right Ventricle Normal RV size. Normal systolic function. Atria Normal left atrium. Normal right atrium. Bubble contrast study negative for right to left interatrial shunt. Mitral Valve Normal mitral valve. Tricuspid Valve Normal tricuspid valve. Mild tricuspid valve insufficiency. Aortic Valve Normal aortic valve. Trisinus/trileaflet aortic valve. Pulmonic Valve Normal pulmonic valve. Great Vessels Normal aortic root. The pulmonary artery is normal size. Normal inferior vena cava. Pericardium/Pleural No pericardial effusion. Medication Performed a rapid injection of agitated mix of 9 cc saline and 1cc air to assess for atrial septal defect. MMode/2D Measurements & Calculations LVIDd: 4.1 cm IVSd: 1.3 cm Ao root diam: 3.1 cm RVDd: 3.0 cm LVPWd: 1.4 cm LAV(MOD-bp): 46.6 ml LVAd ap4: 19.7 cm2 SV(MOD-sp4): 30.3 ml LAV(MOD-bp) Indexed: 20.7 ml/m2 LVLd ap4: 6.9 cm LAV(MOD-sp2): 39.4 ml EDV(MOD-sp4): 47.3 ml LAV(MOD-sp4): 49.7 ml EDV(sp4-el): 47.3 ml LVAs ap4: 10.7 cm2 LVLs ap4: 5.7 cm ESV(MOD-sp4): 17.0 ml ESV(sp4-el): 17.0 ml EF(MOD-sp4): 64.0 % EF(sp4-el): 64.1 % SV(sp4-el): 30.3 ml LA A4 area: 18.6 cm2 LA dimension(2D): 4.1 cm RA A4 area: 10.4 cm2 Time Measurements MV dec time: 0.31 sec Doppler Measurements & Calculations MV E max ck: 70.7 cm/sec Lat Peak E' Ck: 10.1 cm/sec Med Peak E' Ck: 7.6 cm/sec MV A max ck: 88.0 cm/sec E/E' lat: 7.0 E/E' med: 9.3 MV E/A: 0.80 MV dec slope: 225.6 cm/sec2 Ao V2 max: 155.5 cm/sec LV V1 max: 114.5 cm/sec Ao max P.7 mmHg LV V1 max P.2 mmHg Ao V2 mean: 114.3 cm/sec Ao mean P.6 mmHg Ao V2 VTI: 28.7 cm PA V2 max: 78.7 cm/sec TR max ck: 214.7 cm/sec TR max P.4 mmHg ECHO/Echo Complete Interpretation Summary Normal LV size. Left ventricular systolic function is normal. The estimated ejection fraction is 60 %. Stage 1 diastolic dysfunction. Mild tricuspid valve insufficiency. Ordering Physician: Shira Sharma Referring Physician: Missy Mcclain Performed By: Malika Mcneil, AMOR, RVT
== END | disposition home or self-care (01) ==
LOC: CVS 10:41
PROVIDERS: Referring Provider Physician Assistant; Visit Provider Physician Assistant
DX: I73.9 Peripheral vascular disease, unspecified (principal); I25.10 Atherosclerotic heart disease of native coronary artery without angina pectoris
CPT/HCPCS: 93306; A4216

== ENCOUNTER 2023-03-15 08:30 | Day surgery (SDC) | payer MEDICAID, SELFPAY ==
[2023-03-14 08:15] VITALS: BMI 47.7
[2023-03-15 08:54] LABS: Hematocrit 43.1 % (37-47); Hemoglobin 14.4 g/dL (12.0-15.0); Mean Corp Hgb Conc 33.4 g/dL (32-36); Mean Corpuscular Hgb 30.8 pg (27.0-32.0); Mean Corpuscular Volume 92.1 fL (81-99); Platelet Count 310 K/mm3 (150-450); RBC Distribution Width CV 12.5 % (11.6-14.6); RBC Distribution Width SD 42.2 fl (35.1-43.9); Red Blood Count 4.68 M/mm3 (4.2-5.4); White Blood Count 9.4 K/mm3 (4.4-11.0)
[2023-03-15 09:04] LABS: Internal QC Validated? YES +Cl - CLEAR BKGD; Pregnancy, Serum, hCG Quali. NEGATIVE Negative
[2023-03-15 09:12] LABS: Anion Gap 5 (5-15); BUN 10 mg/dL (7-18); Calcium,Total 9.2 mg/dL (8.5-10.1); Chloride 108 mmol/L (98-107); Creatinine, Serum 0.56 mg/dL (0.55-1.02); EST Glomerular Filtration Rate 126 mL/min (>60); Est Glom Filt Rate - Afr Amer 152 mL/min (>60); Glucose 112 mg/dL (74-106); Potassium 4.1 mmol/L (3.5-5.1); Sodium Level 138 mmol/L (136-145)
[2023-03-15 13:32] LABS: ACT Activated Clotting Time 233 sec (74-137)
[2023-03-15 13:32] LABS: ACT Activated Clotting Time 197 sec (74-137)
--- NOTE | 2023-03-15 15:54 | PCM.OPRPT ---
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 She noninvasive vascular labs and CT angiography which revealed moderate arterial insufficiency and high-grade stenosis of the proximal portion of the left external iliac artery with otherwise minimal atherosclerosis or plaque. [place] that the external iliac lesion was the source of the atheroembolization in the distal warranted intervention. She is taken now for angiogram with possible invention. Description of procedure: Upon obtaining informed consent and verification correct patient procedure site patient taken to the [employer] where she was positioned prepped and draped in usual sterile fashion. Time was then performed conscious sedation ministered with Versed and fentanyl. The skin overlying the left common femoral artery anesthetized with 1% lidocaine and the vessel accessed in retrograde fashion with a micropuncture needle and wire. This exchanged for micropuncture sheath through which injection iliac angiogram was performed which revealed no extravasation or dissection but appeared to show occlusion of the external iliac with no reflux of contrast into the common iliac artery. Bentson wire then advanced and the micropuncture sheath exchanged out for a short 6 German sheath. Patient was in heparinized allowed to circulate 3 minutes with serial heparin redosing performed based on ACT results. Using Bentson wire and angled glide catheter attempted to traverse the lesion but were unable to find a lumen and maintain position within true lumen. [place] that access from the contralateral side and imaging from above would be beneficial to skin overlying the right common femoral artery was anesthetized 1% lidocaine and the vessel accessed under ultrasound guidance retrograde fashion with a microneedle wire. This then exchanged for micropuncture sheath through which the iliac angiogram was performed which revealed satisfactory position with no extravasation or dissection. Through the micropuncture sheath Bentson wire was advanced into the abdominal aorta and the micropuncture sheath exchanged out for short 6 German sheath. Through the 6 German sheath a RORY catheter was advanced into the aorta and used to navigate in the contralateral iliac system with a Bentson wire. Then advanced the catheter into the common iliac artery on the left and performed antegrade imaging which confirmed there was high-grade stenosis of proximal 99% and that our wire and catheter from below or in a subintimal plane. The wire and catheter from the left femoral access sheath were then withdrawn down into the external iliac artery and we made efforts from the right femoral access sheath to traverse the lesion. The wire Preferentially going into the internal iliac artery but we able to get enough purchase to withdraw the catheter and short 6 German sheath and exchanged out for 6 German Balkan sheath which was advanced up and over the aortic bifurcation with the tip positioned in the common iliac artery. From this position using a multitude of wires and catheters we finally able to cross with a command 18 wire and a angled glide catheter. The catheter was then advanced into the external artery and hand-injection angiogram confirmed placement within the true lumen. Next a Magic wire was advanced via the glide catheter advancing it into the left superficial femoral artery. The Magic wire was then exchanged for a command 14 wire and the catheter withdrawn after which a 6 German intravascular shunt probe was advanced over the wire and recorded pullback performed of the left common femoral artery, left external carotid, left common iliac artery. This confirmed presence within true lumen across the lesion and very soft and irregular appearing plaque. Is felt that given the plaque morphology that covered stent was appropriate and the intent was to cover the lesion without sacrificing in the internal iliac origin. [place] that a [place] Vi[place]ahn VBX was the most appropriate option which required a 7 German sheath so the glide cath was then readvanced over the 014 wire and the 1 4 wire exchanged for a Magic wire and over the Magic wire the 6 German Balkan exchanged for 7 German Balkan again positioned in the left common iliac artery. Next a [place] Viabahn VBX 8 x 29 was brought in the field prep for hang gliding instructor instructions. Subtraction angiography via the Balkan sheath confirmed the location of the lesion as well as the entirety of the origin of the internal iliac artery. The VBX stent was then advanced into position centered over the lesion with no coverage of the internal iliac artery and then inflated to nominal and then deflated withdrawn. Completion angiography confirmed satisfactory stent positioning with no extravasation or dissection and brisk contrast transit across the stent into the external iliac artery and the left lower extremity outflow. There was no compromise of the internal iliac artery ostia. Next the Balkan sheath was exchanged out for a short sheath after which a 6 German minx was deployed followed by 2 minutes of manual pressure with satisfactory stasis noted. Next the left femoral access sheath was closed with a minx device followed by 2 minutes of manual pressure and satisfactory stasis. Patient was then taken to recovery room for bedrest prior to discharge home. Grafts/Implants Used: 8 x 29 [place] VBX
== END 2023-03-15 16:21 | disposition home or self-care (01) ==
PROVIDERS: Referring Provider Surgery Trauma Surgery; Visit Provider Surgery Trauma Surgery
DX: I73.9 Peripheral vascular disease, unspecified (principal); E11.9 Type 2 diabetes mellitus without complications; I25.10 Atherosclerotic heart disease of native coronary artery without angina pectoris; K21.9 Gastro-esophageal reflux disease without esophagitis; E78.5 Hyperlipidemia, unspecified; I25.2 Old myocardial infarction; Z82.49 Family history of ischemic heart disease and other diseases of the circulatory system; F17.210 Nicotine dependence, cigarettes, uncomplicated
CPT/HCPCS: 36200; 36245; 36415; 37221; 37252; 37253; 75625; 75710; 76937; 80048; 84703; 85027; 85347; 86850; 86900; 86901; 99152; 99153; C1753; C1760; C1769; C1874; J7040; Q9967; C1894

== ENCOUNTER → 2023-05-02 | Outpatient (CLI) | payer MEDICAID, SELFPAY ==
--- NOTE | 2023-05-02 13:45 | ART_ITS ---
Reason For Study: PVD Procedure A bilateral lower extremity continuous wave Doppler with analog waveform analysis,segmental pressures,and ankle brachial indexes with exercise. Left Segmental Pressures Left brachial= 151mmHg. Left posterior tibial artery = 157mmHg. Left dorsalis pedis artery = 112mmHg. The left posterior tibial artery waveforms are triphasic. The left dorsalis pedis waveforms are triphasic. Right Segmental Pressures Right brachial= 145mmHg. Right posterior tibial artery = 154mmHg. Right dorsalis pedis artery = 149mmHg. Right digit = 156 mmHg. The right posterior tibial artery waveforms are triphasic. The right dorsalis pedis waveforms are triphasic. Indices The right ankle brachial index by the posterior tibial artery is 1.02. The right ankle brachial index by the dorsalis pedis is 0.99. The right digital-brachial index is 1.03. The right ankle brachial index by the posterior tibial artery post exercise is 0.89. The left ankle brachial index by the posterior tibial artery is 1.04. The left ankle brachial index by the dorsalis pedis is 1.01. The left post exercise ankle brachial index is 0.74. The left posterior tibial artery index post exercise is 0.92. VL/Lower Ext Art Exam w/ Exercise Interpretation Summary Right TORRI 1.02, normal. TBI and Doppler/PVR waveforms of the right leg normal a t rest. Right lower extremity exhibits normal response to exercise. Left TORRI 1.04, normal. Doppler/PVR waveforms of the left leg normal at rest. TB I diminished, pedal/digit disease vs spasm. Left lower extremity exhibits normal response to exercise. Ordering Physician: Roger Cyr Referring Physician: Missy Mcclain Mae Performed By: Tito Mak, RVT
== END | disposition home or self-care (01) ==
LOC: CVS 13:42
PROVIDERS: Referring Provider Surgery Trauma Surgery; Visit Provider Surgery Trauma Surgery
DX: I73.9 Peripheral vascular disease, unspecified (principal)
CPT/HCPCS: 93924

== ENCOUNTER → 2023-09-25 | Outpatient (CLI) | payer MEDICAID, SELFPAY ==
--- NOTE | 2023-09-25 13:46 | ART_ITS ---
Reason For Study: PVD / Lt Iliac Stent Procedure A bilateral lower extremity continuous wave Doppler with analog waveform analysis,segmental pressures,and ankle brachial indexes with exercise. Left Segmental Pressures Left brachial= 143mmHg. Left posterior tibial artery = 155mmHg. Left dorsalis pedis artery = 143mmHg. Left digit = 75 mmHg. The left posterior tibial artery waveforms are triphasic. The left dorsalis pedis waveforms are triphasic. Right Segmental Pressures Right brachial= 136mmHg. Right posterior tibial artery = 149mmHg. Right dorsalis pedis artery = 147mmHg. Right digit = 121 mmHg. The right posterior tibial artery waveforms are triphasic. The right dorsalis pedis waveforms are triphasic. Indices The right ankle brachial index by the posterior tibial artery is 1.04. The right ankle brachial index by the dorsalis pedis is 1.03. The right digital-brachial index is 0.85. The right post exercise ankle brachial index is 1.14. The left ankle brachial index by the posterior tibial artery is 1.08. The left ankle brachial index by the dorsalis pedis is 1.00. The left digital-brachial index is 0.52. The left post exercise ankle brachial index is 1.14. VL/Lower Ext Art Exam w/ Exercise Interpretation Summary Right TORRI 1.04, normal. TBI and Doppler/PVR waveforms of the right leg normal a t rest. Right lower extremity exhibits normal response to exercise. Left TORRI 1.08, normal. Doppler/PVR waveforms of the left leg normal at rest. TB I diminished, pedal/digit disease vs spasm. Left lower extremity exhibits normal response to exercise. Ordering Physician: Shira Anne Referring Physician: Missy Mcclain Performed By: Tito Mak RVT
== END | disposition home or self-care (01) ==
LOC: CVS 13:46
PROVIDERS: Referring Provider Physician Assistant; Visit Provider Physician Assistant
DX: I73.9 Peripheral vascular disease, unspecified (principal); Z48.812 Encounter for surgical aftercare following surgery on the circulatory system
CPT/HCPCS: 93924